=== PATIENT | female | born 1985 | race Caucasian/White ===

== ENCOUNTER → 2020-03-17 10:56 | Outpatient (BNVA) | payer MEDICAID, SELFPAY | PROVIDERS: Family Provider Nurse Practitioner; PCP Nurse Practitioner Family; Visit Provider Nurse Practitioner Family | DX: J44.1 Chronic obstructive pulmonary disease with (acute) exacerbation (principal); J45.901 Unspecified asthma with (acute) exacerbation | CPT/HCPCS: 71046 ==

== ENCOUNTER 2020-03-21 13:44 | Inpatient (IN) | payer MEDICAID, SELFPAY ==
[2020-03-21] VITALS (57 sets, daily range): BP systolic 88–177; BP diastolic 56–112; PULSE 77–140; RESP 14–29; TEMP 36.6–36.7; O2SAT 93–100; BMI 32.5
--- NOTE | 2020-03-21 14:05 | XR_ITS ---
WS: [id number] PORTABLE CHEST HISTORY: SOB COMPARISON: 03/17/2009 Lungs are clear and well expanded. No pleural effusion or pneumothorax. Cardiac size: Normal. Mediastinum/Aorta: Normal mediastinum. No osseous abnormality seen. XR/XR chest 1V portable [id number] IMPRESSION: Unremarkable portable chest.
[2020-03-21 14:32] LABS: Bilirubin Urine Neg (NEGATIVE); Blood Urine Neg (Negative); Glucose Urine UA Norm (Normal); Ketones Urine Negative (Negative); Leukocyte Esterase Urine Negative (Negative); Nitrate Urine Negative (Negative); Protein Urine Neg (Negative); Specific Gravity, Urine 1.015 (1.005-1.030); Urine Appearance Clear (CLEAR); Urine Color Yellow (Yellow); Urobilinogen Urine Norm (Negative); pH Urine 6 (5-7)
[2020-03-21 14:33] LABS: Add Urine Culture? No; Bacteria Urine TRACE; Mucus Urine 1+; RBC Urine 0-4 /hpf (0-2); WBC Urine 0-4 /hpf (0-5)
[2020-03-21 14:38] LABS: Basophils % 0.2 %; Eosinophils # 0.1 10^3/uL (0.0-0.8); Eosinophils % 0.4 %; Hematocrit 43.5 % (37.0-47.0); Hemoglobin 14.3 g/dL (11.5-15.3); Lymphocytes # 3.4 10^3/uL (0.8-4.8); Lymphocytes % 19.4 %; Mean Corpuscular HGB Conc 32.9 g/dL (30.0-36.0); Mean Corpuscular Hemoglobin 28.7 pg (28.0-34.0); Mean Corpuscular Volume 87.3 fL (81-99); Mean Platelet Volume 9.7 fL (7.4-10.4); Neutrophils # 12.81 10^3/uL (1.8-7.7); Neutrophils % 73.7 %; Nucleated Red Blood Cells % 0 %; Platelet Count 364 10^3/cmm (130-400); Red Blood Count 4.98 10^6/uL (4.1-5.3); White Blood Count 17.4 10^3/uL (4.0-10.0)
[2020-03-21] MEDS: sodium chloride 0.9% 1,000 ML 999 ML IV (14:49)
[2020-03-21] MEDS: dexamethasone 4 mg/mL INJ 8 MG IVP (14:49)
--- NOTE | 2020-03-21 14:50 | XR_ITS ---
WS: [id number] SOFT TISSUE NECK 2 VIEW(S) TECHNIQUE: AP and lateral views of the neck in soft tissue technique are performed. HISTORY: stridor COMPARISON: None available. There is significant dilatation of the hypopharynx. The epiglottis appears normal in size but there i s increased soft tissue in the subglottic region. There is mild narrowing of the subglottic region al so. No foreign body. Notified Grant Hedrick DO at 03/21/2020 3:42 PM. XR/XR soft tissue neck [id number] IMPRESSION: Significant dilatation of the hypopharynx with increased soft tissue in the sub glottic airway. Likely from a viral etiology or edema.
[2020-03-21 14:55] LABS: D Dimer 0.32 ug/mIFEU (0-0.59)
[2020-03-21 14:56] LABS: Alanine Aminotransferase 19 U/L (0-33); Albumin Level 4.3 g/dL (3.5-5.2); Alkaline Phosphatase 93 IU/L (35-105); Anion Gap 11.3 (5-19); Aspartate Amino Transferase 19 U/L (0-32); Blood Urea Nitrogen 6 mg/dL (6-20); C Reactive Protein 8.4 mg/L (0.0-4.9); Calcium 8.7 mg/dL (8.5-10.5); Carbon Dioxide 27 mmol/L (22-29); Chloride 96 mmol/L (98-107); Creatinine Clr Calc Pharmacy 210.5249; Ferritin 53 ng/mL (15-150); Globulin 3.2 g/dL (1.3-4.6); Glomerular Filtration Rate 182.7 mL/min (90-130); Glucose 149 mg/dL (65-115); Lactate Dehydrogenase 170 U/L (135-214); Osmolality Calculated 271 mOsm/kg (285-295); Potassium 3.3 mmol/L (3.5-5.1); Sodium 131 mmol/L (136-145); Total Bilirubin 0.2 mg/dL (0.15-1.2); Total Protein 7.5 g/dL (6.6-8.7)
[2020-03-21 14:57] LABS: Lactic Sepsis W/Reflex 1.4 mmol/L (0.5-2.2)
--- NOTE | 2020-03-21 15:03 | W.ED.SOB ---
Documented by User: rGant Hedrick DO 03/24/20 17:59 HPI - SOB/Dyspnea General: Chief Complaint: Shortness of Breath/Dyspnea Stated Complaint: RESP DISTRESS Time Seen by Provider: 03/21/20 13:56 History of Present Illness: HPI Narrative: 35-year-old female comes in complaining of difficulty breathing she has stridorous breathing coming from the upper respiratory tract. She states she was seen at [facility] and diagnosed bronchitis she was started on the antibiotic nebulizers and steroids but she has not really noticed any improvement she denies any fever no nausea vomiting or diarrhea no anasomia no chest pain she denies any dysuria urgency or frequency denies any hematemesis coffee-ground. He has been coughing which is been a nonproductive cough. Emesis. MD elicited complaint: shortness of breath and cough Pertinent past history: asthma Onset (ago): day(s) Context: recent illness Timing: constant and progressively worsening Severity: moderate Exacerbating factors: exertion and coughing Relieving factors: rest and bronchodilators Known history of: asthma Associated symptoms: Reports cough; Deny abdominal pain, chest congestion, chest pain, diaphoresis, dizziness, extremity pain, fever(s), hemoptysis, lightheadedness, myalgias, nausea, orthopnea, palpitations, syncope or vomiting Treatment prior to arrival: bronchodilator Review of Systems Const: Denies: fever(s) or diaphoresis ENMT: Denies: throat pain, ear or mastoid pain, nasal discharge or nasal congestion Card: Denies: chest pain, palpitations, lightheadedness, syncope or orthopnea Resp: Denies: hemoptysis or chest congestion GI: Denies: abdominal pain, nausea or vomiting : Denies: flank pain, difficulty voiding, dysuria, urinary frequency or urinary urgency Musc: Denies: extremity pain Skin/Breast: Denies: rash or pruritus Neuro: Denies: dizziness PFSH ED PFSH: Medical History Asthma with COPD with exacerbation Depression with anxiety H/O juvenile arthritis H/O migraine Lower respiratory infection Social History Smoking and tobacco status: current every day smoker cigarettes Packs smoked per day: 0.5 Years cigarettes smoked: 20 Female Reproductive History: Date of last menstrual period: 12/20/19 Physical Exam Const: COMMON NORMALS: no acute distress GENERAL APPEARANCE: cooperative and comfortable ORIENTATION/CONSCIOUSNESS: Yes awake, Yes oriented to person, Yes oriented to place and Yes oriented to time HENMT: COMMON NORMALS: normocephalic and atraumatic HEAD & SCALP: normocephalic and atraumatic Eye: COMMON NORMALS: Equal, round and reactive pupils present, EOMs intact bilaterally, conjunctivae normal and no scleral icterus CONJUNCTIVA: Yes conjunctivae normal PUPIL: Yes Equal, round and reactive pupils present Neck/C-Spine: COMMON NORMALS: full ROM, no lymphadenopathy, supple and no JVD Lymph: LYMPHATIC: no lymphadenopathy noted and no lymphedema noted Resp: COMMON NORMALS: normal respiratory effort, No retractions, No use of accessory muscles and clear to auscultation bilaterally AUSCULTATION: clear to auscultation bilaterally Cardio: COMMON NORMALS: no JVD, regular rate, regular rhythm and No murmurs present (Cardio) RATE: regular rate RHYTHM: regular rhythm GI: COMMON NORMALS: Soft to palpation and No hepatosplenomegaly present AUSCULTATION: Yes normoactive bowel sounds PALPATION: Yes Soft to palpation, No Tenderness to palpation present (GI), No Guarding due to palpation present (GI) and Yes No hepatosplenomegaly present Extremity: COMMON NORMALS: normal to inspection, capillary refill normal, no clubbing, cyanosis or edema, no calf tenderness and no pedal edema Neuro: SENSORIUM/ORIENTATION: Yes oriented to person, Yes oriented to place and Yes oriented to time Skin: COMMON NORMALS: no rashes or lesions noted GENERAL SKIN EXAM: no rashes or lesions noted Course Vital Signs: Vital signs: Vital Signs Temperature 98.5 F 03/24/20 14:00 Pulse Rate 63 03/24/20 16:00 Respiratory Rate 19 H 03/24/20 16:00 Blood Pressure 121/73 03/24/20 16:00 Pulse Oximetry 94 03/24/20 16:00 MDM - SOB/Dyspnea MDM Narrative: Medical decision making narrative: Care turned over to Dr. Carson at change of shift. I talked to Dr. Doran as well as Dr. Delgado. Dr. Doran is in the department working with anesthesia to make ready for an awake intubation. Dr. Delgado is in route and will also evaluate the mass found on the larynx on the CT. Patient has been transferred to room 11 Dr. Doran is in the room with her at this time. Dr. Carson is made aware of the current plan and that Dr. Doran is making ready to intubate her. Lab Data: Labs: Lab Results 03/21/20 03/21/20 03/21/20 Range/Units 14:00 14:20 14:20 WBC 17.4 H (4.0-10.0) 10^3/ uL RBC 4.98 (4.1-5.3) 10^6/u L Hgb 14.3 (11.5-15.3) g/dL Hct 43.5 (37.0-47.0) % MCV 87.3 (81-99) fL MCH 28.7 (28.0-34.0) pg MCHC 32.9 (30.0-36.0) g/dL RDW 12.0 L (12.1-15.1) % Plt Count 364 (130-400) 10^3/c mm MPV 9.7 (7.4-10.4) fL Neut % (Auto) 73.7 % Lymph % (Auto) 19.4 % Bullitt % (Auto) 6.0 % Eos % (Auto) 0.4 % Baso % (Auto) 0.2 % Neut # (Auto) 12.81 H (1.8-7.7) 10^3/u L Lymph # (Auto) 3.4 (0.8-4.8) 10^3/u L Bullitt # (Auto) 1.0 H (0.2-0.9) 10^3/u L Eos # (Auto) 0.1 (0.0-0.8) 10^3/u L Baso # (Auto) 0.0 (0.0-0.1) 10^3/u L Nucleated RBC % (a uto) 0 % Nucleated RBCs # 0.0 /100WBC D-Dimer (0-0.59) ug/mIFE U Sodium 131 L (136-145) mmol/L Potassium 3.3 L (3.5-5.1) mmol/L Chloride 96 L (98-107) mmol/L Carbon Dioxide 27 (22-29) mmol/L Anion Gap 11.3 (5-19) BUN 6 (6-20) mg/dL Creatinine 0.4 L (0.5-0.9) mg/dL GFR Calculation 182.7 H (90-130) mL/min Glucose 149 H (65-115) mg/dL Estimat Average Gl ucose Hemoglobin A1c (4.0-6.0) % Calculated Osmolal ity 271 L (285-295) mOsm/k g Lactic Acid (0.5-2.2) mmol/L Calcium 8.7 (8.5-10.5) mg/dL Magnesium (1.7-2.3) mg/dL Ferritin 53 (15-150) ng/mL Total Bilirubin 0.2 (0.15-1.2) mg/dL AST 19 (0-32) U/L ALT 19 (0-33) U/L Alkaline Phosphata se 93 (35-105) IU/L Lactate Dehydrogen ase 170 (135-214) U/L C-Reactive Protein 8.4 H (0.0-4.9) mg/L Total Protein 7.5 (6.6-8.7) g/dL Albumin 4.3 (3.5-5.2) g/dL Globulin 3.2 (1.3-4.6) g/dL HCG, Qual (Negative) Urine Color Yellow (Yellow) Urine Appearance Clear (CLEAR) Urine pH 6 (5-7) Ur Specific Gravit y 1.015 (1.005-1.030) Urine Protein Neg (Negative) Urine Glucose (UA) Norm (Normal) Urine Ketones Negative (Negative) Urine Blood Neg (Negative) Urine Nitrate Negative (Negative) Urine Bilirubin Neg (NEGATIVE) Urine Urobilinogen Norm (Negative) mg/dL Ur Leukocyte Danielle ase Negative (Negative) Urine RBC 0-4 H (0-2) /hpf Urine WBC 0-4 H (0-5) /hpf Ur Squamous Epith Cells 10-15 H (0-5) Amorphous Sediment Not Reportable Urine Bacteria Trace (NONE) Urine Mucus 1+ SARS-CoV-2 RNA (RT -PCR) (NOT DETECTED) SARS-CoV-2 Ag (Rap id) (Negative) 03/21/20 03/21/20 03/21/20 Range/Units 14:20 14:20 14:20 WBC (4.0-10.0) 10^3/ uL RBC (4.1-5.3) 10^6/u L Hgb (11.5-15.3) g/dL Hct (37.0-47.0) % MCV (81-99) fL MCH (28.0-34.0) pg MCHC (30.0-36.0) g/dL RDW (12.1-15.1) % Plt Count (130-400) 10^3/c mm MPV (7.4-10.4) fL Neut % (Auto) % Lymph % (Auto) % Bullitt % (Auto) % Eos % (Auto) % Baso % (Auto) % Neut # (Auto) (1.8-7.7) 10^3/u L Lymph # (Auto) (0.8-4.8) 10^3/u L Bullitt # (Auto) (0.2-0.9) 10^3/u L Eos # (Auto) (0.0-0.8) 10^3/u L Baso # (Auto) (0.0-0.1) 10^3/u L Nucleated RBC % (a uto) % Nucleated RBCs # /100WBC D-Dimer 0.32 (0-0.59) ug/mIFE U Sodium (136-145) mmol/L Potassium (3.5-5.1) mmol/L Chloride (98-107) mmol/L Carbon Dioxide (22-29) mmol/L Anion Gap (5-19) BUN (6-20) mg/dL Creatinine (0.5-0.9) mg/dL GFR Calculation (90-130) mL/min Glucose (65-115) mg/dL Estimat Average Gl ucose Hemoglobin A1c (4.0-6.0) % Calculated Osmolal ity (285-295) mOsm/k g Lactic Acid 1.4 (0.5-2.2) mmol/L Calcium (8.5-10.5) mg/dL Magnesium (1.7-2.3) mg/dL Ferritin (15-150) ng/mL Total Bilirubin (0.15-1.2) mg/dL AST (0-32) U/L ALT (0-33) U/L Alkaline Phosphata se (35-105) IU/L Lactate Dehydrogen ase (135-214) U/L C-Reactive Protein (0.0-4.9) mg/L Total Protein (6.6-8.7) g/dL Albumin (3.5-5.2) g/dL Globulin (1.3-4.6) g/dL HCG, Qual Negative (Negative) Urine Color (Yellow) Urine Appearance (CLEAR) Urine pH (5-7) Ur Specific Gravit y (1.005-1.030) Urine Protein (Negative) Urine Glucose (UA) (Normal) Urine Ketones (Negative) Urine Blood (Negative) Urine Nitrate (Negative) Urine Bilirubin (NEGATIVE) Urine Urobilinogen (Negative) mg/dL Ur Leukocyte Danielle ase (Negative) Urine RBC (0-2) /hpf Urine WBC (0-5) /hpf Ur Squamous Epith Cells (0-5) Amorphous Sediment Urine Bacteria (NONE) Urine Mucus SARS-CoV-2 RNA (RT -PCR) (NOT DETECTED) SARS-CoV-2 Ag (Rap id) (Negative) 03/21/20 03/21/20 03/21/20 Range/Units 14:20 14:20 14:45 WBC (4.0-10.0) 10^3/ uL RBC (4.1-5.3) 10^6/u L Hgb (11.5-15.3) g/dL Hct (37.0-47.0) % MCV (81-99) fL MCH (28.0-34.0) pg MCHC (30.0-36.0) g/dL RDW (12.1-15.1) % Plt Count (130-400) 10^3/c mm MPV (7.4-10.4) fL Neut % (Auto) % Lymph % (Auto) % Bullitt % (Auto) % Eos % (Auto) % Baso % (Auto) % Neut # (Auto) (1.8-7.7) 10^3/u L Lymph # (Auto) (0.8-4.8) 10^3/u L Bullitt # (Auto) (0.2-0.9) 10^3/u L Eos # (Auto) (0.0-0.8) 10^3/u L Baso # (Auto) (0.0-0.1) 10^3/u L Nucleated RBC % (a uto) % Nucleated RBCs # /100WBC D-Dimer (0-0.59) ug/mIFE U Sodium (136-145) mmol/L Potassium (3.5-5.1) mmol/L Chloride (98-107) mmol/L Carbon Dioxide (22-29) mmol/L Anion Gap (5-19) BUN (6-20) mg/dL Creatinine (0.5-0.9) mg/dL GFR Calculation (90-130) mL/min Glucose (65-115) mg/dL Estimat Average Gl ucose 123 Hemoglobin A1c 5.9 (4.0-6.0) % Calculated Osmolal ity (285-295) mOsm/k g Lactic Acid (0.5-2.2) mmol/L Calcium (8.5-10.5) mg/dL Magnesium 1.9 (1.7-2.3) mg/dL Ferritin (15-150) ng/mL Total Bilirubin (0.15-1.2) mg/dL AST (0-32) U/L ALT (0-33) U/L Alkaline Phosphata se (35-105) IU/L Lactate Dehydrogen ase (135-214) U/L C-Reactive Protein (0.0-4.9) mg/L Total Protein (6.6-8.7) g/dL Albumin (3.5-5.2) g/dL Globulin (1.3-4.6) g/dL HCG, Qual (Negative) Urine Color (Yellow) Urine Appearance (CLEAR) Urine pH (5-7) Ur Specific Gravit y (1.005-1.030) Urine Protein (Negative) Urine Glucose (UA) (Normal) Urine Ketones (Negative) Urine Blood (Negative) Urine Nitrate (Negative) Urine Bilirubin (NEGATIVE) Urine Urobilinogen (Negative) mg/dL Ur Leukocyte Danielle ase (Negative) Urine RBC (0-2) /hpf Urine WBC (0-5) /hpf Ur Squamous Epith Cells (0-5) Amorphous Sediment Urine Bacteria (NONE) Urine Mucus SARS-CoV-2 RNA (RT -PCR) Not detected (NOT DETECTED) SARS-CoV-2 Ag (Rap id) (Negative) 03/21/20 Range/Units 17:50 WBC (4.0-10.0) 10^3/ uL RBC (4.1-5.3) 10^6/u L Hgb (11.5-15.3) g/dL Hct (37.0-47.0) % MCV (81-99) fL MCH (28.0-34.0) pg MCHC (30.0-36.0) g/dL RDW (12.1-15.1) % Plt Count (130-400) 10^3/c mm MPV (7.4-10.4) fL Neut % (Auto) % Lymph % (Auto) % Bullitt % (Auto) % Eos % (Auto) % Baso % (Auto) % Neut # (Auto) (1.8-7.7) 10^3/u L Lymph # (Auto) (0.8-4.8) 10^3/u L Bullitt # (Auto) (0.2-0.9) 10^3/u L Eos # (Auto) (0.0-0.8) 10^3/u L Baso # (Auto) (0.0-0.1) 10^3/u L Nucleated RBC % (a uto) % Nucleated RBCs # /100WBC D-Dimer (0-0.59) ug/mIFE U Sodium (136-145) mmol/L Potassium (3.5-5.1) mmol/L Chloride (98-107) mmol/L Carbon Dioxide (22-29) mmol/L Anion Gap (5-19) BUN (6-20) mg/dL Creatinine (0.5-0.9) mg/dL GFR Calculation (90-130) mL/min Glucose (65-115) mg/dL Estimat Average Gl ucose Hemoglobin A1c (4.0-6.0) % Calculated Osmolal ity (285-295) mOsm/k g Lactic Acid (0.5-2.2) mmol/L Calcium (8.5-10.5) mg/dL Magnesium (1.7-2.3) mg/dL Ferritin (15-150) ng/mL Total Bilirubin (0.15-1.2) mg/dL AST (0-32) U/L ALT (0-33) U/L Alkaline Phosphata se (35-105) IU/L Lactate Dehydrogen ase (135-214) U/L C-Reactive Protein (0.0-4.9) mg/L Total Protein (6.6-8.7) g/dL Albumin (3.5-5.2) g/dL Globulin (1.3-4.6) g/dL HCG, Qual (Negative) Urine Color (Yellow) Urine Appearance (CLEAR) Urine pH (5-7) Ur Specific Gravit y (1.005-1.030) Urine Protein (Negative) Urine Glucose (UA) (Normal) Urine Ketones (Negative) Urine Blood (Negative) Urine Nitrate (Negative) Urine Bilirubin (NEGATIVE) Urine Urobilinogen (Negative) mg/dL Ur Leukocyte Danielle ase (Negative) Urine RBC (0-2) /hpf Urine WBC (0-5) /hpf Ur Squamous Epith Cells (0-5) Amorphous Sediment Urine Bacteria (NONE) Urine Mucus SARS-CoV-2 RNA (RT -PCR) (NOT DETECTED) SARS-CoV-2 Ag (Rap id) Negative (Negative) Discharge Plan Discharge Patient Disposition: Admitted As Inpatient Admit Provider: Bunny Jiang Clinical Impression: Airway obstruction, Vocal cord mass Condition: Stable Interventions: ED Discharge Assessment Last Done: 03/21/20 19:26 ED Charges Last Done: 03/21/20 19:26 Discharge Date/Time: 03/21/20 19:31 Sign Out Sign Out Data: Patient Sign Out occurred on 03/21/20 at 18:20. Patient's care was discussed, and care was transferred from to Kourtney Stafford. Coding Level of Care Code ED Junior Mechanical Engineer for Chg Fwd Exam Comprehensive Documented by User: Kourtney Stafford 03/21/20 19:14 HPI - SOB/Dyspnea General: Chief Complaint: Shortness of Breath/Dyspnea Stated Complaint: RESP DISTRESS Time Seen by Provider: 03/21/20 13:56 PFSH ED PFSH: Medical History Asthma with COPD with exacerbation Depression with anxiety H/O juvenile arthritis H/O migraine Lower respiratory infection Social History Smoking and tobacco status: current every day smoker cigarettes Packs smoked per day: 0.5 Years cigarettes smoked: 20 Course Vital Signs: Vital signs: Vital Signs Temperature 98.5 F 03/24/20 14:00 Pulse Rate 63 03/24/20 16:00 Respiratory Rate 19 H 03/24/20 16:00 Blood Pressure 121/73 03/24/20 16:00 Pulse Oximetry 94 03/24/20 16:00 MDM - SOB/Dyspnea MDM Narrative: Medical decision making narrative: 1800 - Patient care was turned over to me at change of shift from Dr. Hedrick. Please see his notes for his history, physical exam and medical decision-making notes. The patient's airway was being managed by Dr. Doran and Dr. Waddell. They made the decision to take the patient to the operating room for tracheostomy. At no time that I see or evaluate the patient. I did notify Dr. Jiang of a admission. Until he is seen the patient he request Dr. Delgado to admit him to consult and they will make changes later after Dr. Delgado's care is complete. Lab Data: Labs: Lab Results 03/21/20 03/21/20 03/21/20 Range/Units 14:00 14:20 14:20 WBC 17.4 H (4.0-10.0) 10^3/ uL RBC 4.98 (4.1-5.3) 10^6/u L Hgb 14.3 (11.5-15.3) g/dL Hct 43.5 (37.0-47.0) % MCV 87.3 (81-99) fL MCH 28.7 (28.0-34.0) pg MCHC 32.9 (30.0-36.0) g/dL RDW 12.0 L (12.1-15.1) % Plt Count 364 (130-400) 10^3/c mm MPV 9.7 (7.4-10.4) fL Neut % (Auto) 73.7 % Lymph % (Auto) 19.4 % Bullitt % (Auto) 6.0 % Eos % (Auto) 0.4 % Baso % (Auto) 0.2 % Neut # (Auto) 12.81 H (1.8-7.7) 10^3/u L Lymph # (Auto) 3.4 (0.8-4.8) 10^3/u L Bullitt # (Auto) 1.0 H (0.2-0.9) 10^3/u L Eos # (Auto) 0.1 (0.0-0.8) 10^3/u L Baso # (Auto) 0.0 (0.0-0.1) 10^3/u L Nucleated RBC % (a uto) 0 % Nucleated RBCs # 0.0 /100WBC D-Dimer (0-0.59) ug/mIFE U Sodium 131 L (136-145) mmol/L Potassium 3.3 L (3.5-5.1) mmol/L Chloride 96 L (98-107) mmol/L Carbon Dioxide 27 (22-29) mmol/L Anion Gap 11.3 (5-19) BUN 6 (6-20) mg/dL Creatinine 0.4 L (0.5-0.9) mg/dL GFR Calculation 182.7 H (90-130) mL/min Glucose 149 H (65-115) mg/dL Estimat Average Gl ucose Hemoglobin A1c (4.0-6.0) % Calculated Osmolal ity 271 L (285-295) mOsm/k g Lactic Acid (0.5-2.2) mmol/L Calcium 8.7 (8.5-10.5) mg/dL Magnesium (1.7-2.3) mg/dL Ferritin 53 (15-150) ng/mL Total Bilirubin 0.2 (0.15-1.2) mg/dL AST 19 (0-32) U/L ALT 19 (0-33) U/L Alkaline Phosphata se 93 (35-105) IU/L Lactate Dehydrogen ase 170 (135-214) U/L C-Reactive Protein 8.4 H (0.0-4.9) mg/L Total Protein 7.5 (6.6-8.7) g/dL Albumin 4.3 (3.5-5.2) g/dL Globulin 3.2 (1.3-4.6) g/dL HCG, Qual (Negative) Urine Color Yellow (Yellow) Urine Appearance Clear (CLEAR) Urine pH 6 (5-7) Ur Specific Gravit y 1.015 (1.005-1.030) Urine Protein Neg (Negative) Urine Glucose (UA) Norm (Normal) Urine Ketones Negative (Negative) Urine Blood Neg (Negative) Urine Nitrate Negative (Negative) Urine Bilirubin Neg (NEGATIVE) Urine Urobilinogen Norm (Negative) mg/dL Ur Leukocyte Danielle ase Negative (Negative) Urine RBC 0-4 H (0-2) /hpf Urine WBC 0-4 H (0-5) /hpf Ur Squamous Epith Cells 10-15 H (0-5) Amorphous Sediment Not Reportable Urine Bacteria Trace (NONE) Urine Mucus 1+ SARS-CoV-2 RNA (RT -PCR) (NOT DETECTED) SARS-CoV-2 Ag (Rap id) (Negative) 03/21/20 03/21/20 03/21/20 Range/Units 14:20 14:20 14:20 WBC (4.0-10.0) 10^3/ uL RBC (4.1-5.3) 10^6/u L Hgb (11.5-15.3) g/dL Hct (37.0-47.0) % MCV (81-99) fL MCH (28.0-34.0) pg MCHC (30.0-36.0) g/dL RDW (12.1-15.1) % Plt Count (130-400) 10^3/c mm MPV (7.4-10.4) fL Neut % (Auto) % Lymph % (Auto) % Bullitt % (Auto) % Eos % (Auto) % Baso % (Auto) % Neut # (Auto) (1.8-7.7) 10^3/u L Lymph # (Auto) (0.8-4.8) 10^3/u L Bullitt # (Auto) (0.2-0.9) 10^3/u L Eos # (Auto) (0.0-0.8) 10^3/u L Baso # (Auto) (0.0-0.1) 10^3/u L Nucleated RBC % (a uto) % Nucleated RBCs # /100WBC D-Dimer 0.32 (0-0.59) ug/mIFE U Sodium (136-145) mmol/L Potassium (3.5-5.1) mmol/L Chloride (98-107) mmol/L Carbon Dioxide (22-29) mmol/L Anion Gap (5-19) BUN (6-20) mg/dL Creatinine (0.5-0.9) mg/dL GFR Calculation (90-130) mL/min Glucose (65-115) mg/dL Estimat Average Gl ucose Hemoglobin A1c (4.0-6.0) % Calculated Osmolal ity (285-295) mOsm/k g Lactic Acid 1.4 (0.5-2.2) mmol/L Calcium (8.5-10.5) mg/dL Magnesium (1.7-2.3) mg/dL Ferritin (15-150) ng/mL Total Bilirubin (0.15-1.2) mg/dL AST (0-32) U/L ALT (0-33) U/L Alkaline Phosphata se (35-105) IU/L Lactate Dehydrogen ase (135-214) U/L C-Reactive Protein (0.0-4.9) mg/L Total Protein (6.6-8.7) g/dL Albumin (3.5-5.2) g/dL Globulin (1.3-4.6) g/dL HCG, Qual Negative (Negative) Urine Color (Yellow) Urine Appearance (CLEAR) Urine pH (5-7) Ur Specific Gravit y (1.005-1.030) Urine Protein (Negative) Urine Glucose (UA) (Normal) Urine Ketones (Negative) Urine Blood (Negative) Urine Nitrate (Negative) Urine Bilirubin (NEGATIVE) Urine Urobilinogen (Negative) mg/dL Ur Leukocyte Danielle ase (Negative) Urine RBC (0-2) /hpf Urine WBC (0-5) /hpf Ur Squamous Epith Cells (0-5) Amorphous Sediment Urine Bacteria (NONE) Urine Mucus SARS-CoV-2 RNA (RT -PCR) (NOT DETECTED) SARS-CoV-2 Ag (Rap id) (Negative) 03/21/20 03/21/20 03/21/20 Range/Units 14:20 14:20 14:45 WBC (4.0-10.0) 10^3/ uL RBC (4.1-5.3) 10^6/u L Hgb (11.5-15.3) g/dL Hct (37.0-47.0) % MCV (81-99) fL MCH (28.0-34.0) pg MCHC (30.0-36.0) g/dL RDW (12.1-15.1) % Plt Count (130-400) 10^3/c mm MPV (7.4-10.4) fL Neut % (Auto) % Lymph % (Auto) % Bullitt % (Auto) % Eos % (Auto) % Baso % (Auto) % Neut # (Auto) (1.8-7.7) 10^3/u L Lymph # (Auto) (0.8-4.8) 10^3/u L Bullitt # (Auto) (0.2-0.9) 10^3/u L Eos # (Auto) (0.0-0.8) 10^3/u L Baso # (Auto) (0.0-0.1) 10^3/u L Nucleated RBC % (a uto) % Nucleated RBCs # /100WBC D-Dimer (0-0.59) ug/mIFE U Sodium (136-145) mmol/L Potassium (3.5-5.1) mmol/L Chloride (98-107) mmol/L Carbon Dioxide (22-29) mmol/L Anion Gap (5-19) BUN (6-20) mg/dL Creatinine (0.5-0.9) mg/dL GFR Calculation (90-130) mL/min Glucose (65-115) mg/dL Estimat Average Gl ucose 123 Hemoglobin A1c 5.9 (4.0-6.0) % Calculated Osmolal ity (285-295) mOsm/k g Lactic Acid (0.5-2.2) mmol/L Calcium (8.5-10.5) mg/dL Magnesium 1.9 (1.7-2.3) mg/dL Ferritin (15-150) ng/mL Total Bilirubin (0.15-1.2) mg/dL AST (0-32) U/L ALT (0-33) U/L Alkaline Phosphata se (35-105) IU/L Lactate Dehydrogen ase (135-214) U/L C-Reactive Protein (0.0-4.9) mg/L Total Protein (6.6-8.7) g/dL Albumin (3.5-5.2) g/dL Globulin (1.3-4.6) g/dL HCG, Qual (Negative) Urine Color (Yellow) Urine Appearance (CLEAR) Urine pH (5-7) Ur Specific Gravit y (1.005-1.030) Urine Protein (Negative) Urine Glucose (UA) (Normal) Urine Ketones (Negative) Urine Blood (Negative) Urine Nitrate (Negative) Urine Bilirubin (NEGATIVE) Urine Urobilinogen (Negative) mg/dL Ur Leukocyte Danielle ase (Negative) Urine RBC (0-2) /hpf Urine WBC (0-5) /hpf Ur Squamous Epith Cells (0-5) Amorphous Sediment Urine Bacteria (NONE) Urine Mucus SARS-CoV-2 RNA (RT -PCR) Not detected (NOT DETECTED) SARS-CoV-2 Ag (Rap id) (Negative) 03/21/20 Range/Units 17:50 WBC (4.0-10.0) 10^3/ uL RBC (4.1-5.3) 10^6/u L Hgb (11.5-15.3) g/dL Hct (37.0-47.0) % MCV (81-99) fL MCH (28.0-34.0) pg MCHC (30.0-36.0) g/dL RDW (12.1-15.1) % Plt Count (130-400) 10^3/c mm MPV (7.4-10.4) fL Neut % (Auto) % Lymph % (Auto) % Bullitt % (Auto) % Eos % (Auto) % Baso % (Auto) % Neut # (Auto) (1.8-7.7) 10^3/u L Lymph # (Auto) (0.8-4.8) 10^3/u L Bullitt # (Auto) (0.2-0.9) 10^3/u L Eos # (Auto) (0.0-0.8) 10^3/u L Baso # (Auto) (0.0-0.1) 10^3/u L Nucleated RBC % (a uto) % Nucleated RBCs # /100WBC D-Dimer (0-0.59) ug/mIFE U Sodium (136-145) mmol/L Potassium (3.5-5.1) mmol/L Chloride (98-107) mmol/L Carbon Dioxide (22-29) mmol/L Anion Gap (5-19) BUN (6-20) mg/dL Creatinine (0.5-0.9) mg/dL GFR Calculation (90-130) mL/min Glucose (65-115) mg/dL Estimat Average Gl ucose Hemoglobin A1c (4.0-6.0) % Calculated Osmolal ity (285-295) mOsm/k g Lactic Acid (0.5-2.2) mmol/L Calcium (8.5-10.5) mg/dL Magnesium (1.7-2.3) mg/dL Ferritin (15-150) ng/mL Total Bilirubin (0.15-1.2) mg/dL AST (0-32) U/L ALT (0-33) U/L Alkaline Phosphata se (35-105) IU/L Lactate Dehydrogen ase (135-214) U/L C-Reactive Protein (0.0-4.9) mg/L Total Protein (6.6-8.7) g/dL Albumin (3.5-5.2) g/dL Globulin (1.3-4.6) g/dL HCG, Qual (Negative) Urine Color (Yellow) Urine Appearance (CLEAR) Urine pH (5-7) Ur Specific Gravit y (1.005-1.030) Urine Protein (Negative) Urine Glucose (UA) (Normal) Urine Ketones (Negative) Urine Blood (Negative) Urine Nitrate (Negative) Urine Bilirubin (NEGATIVE) Urine Urobilinogen (Negative) mg/dL Ur Leukocyte Danielle ase (Negative) Urine RBC (0-2) /hpf Urine WBC (0-5) /hpf Ur Squamous Epith Cells (0-5) Amorphous Sediment Urine Bacteria (NONE) Urine Mucus SARS-CoV-2 RNA (RT -PCR) (NOT DETECTED) SARS-CoV-2 Ag (Rap id) Negative (Negative) Discharge Plan Discharge Patient Disposition: Admitted As Inpatient Admit Provider: Bunny Jiang Clinical Impression: Airway obstruction, Vocal cord mass Condition: Stable Interventions: ED Discharge Assessment Last Done: 03/21/20 19:26 ED Charges Last Done: 03/21/20 19:26 Discharge Date/Time: 03/21/20 19:31 Sign Out Sign Out Data: Patient Sign Out occurred on 08/04/20 at 18:20. Patient's care was discussed, and care was transferred from to Kourtney Stafford. Coding Level of Care Code ED Junior Mechanical Engineer for Chg Fwd Exam Comprehensive
--- NOTE | 2020-03-21 15:21 | PC.NURSE ---
Patient placed on COVID isolation and swabbed for COVID 19.
--- NOTE | 2020-03-21 15:49 | CTR_ITS ---
PROCEDURE INFORMATION: Exam: CT Neck With Contrast Exam date and time: 03/21/2020 4:07 PM Age: 35 years old Clinical indication: Dyspnea / difficulty breathing and other: Difficulty talking; Additional info: Stridor TECHNIQUE: Imaging protocol: Computed tomography images of the neck with intravenous contrast. Radiation optimization: All CT scans at this facility use at least one of these dose optimization techniques: automated exposure control; mA and/or kV adjustment per patient size (includes targeted exams where dose is matched to clinical indication); or iterative reconstruction. Contrast material: OMNI 300; Contrast volume: 95 ml; Contrast route: INTRAVENOUS (IV); COMPARISON: CR XR soft tissue neck [id number] 03/21/2020 3:24 PM RADIATION DOSE METRICS: Total DLP (mGy-cm): 752.79 FINDINGS: Limitations: Study is somewhat limited by patient motion. Nasopharynx: Unremarkable. Oropharynx: Unremarkable. No significant tonsillar enlargement. Hypopharynx: Unremarkable. Larynx: There is nonspecific abnormal thickening of the vocal cords on both sides, the aryepiglottic folds and the mucosal space around the arytenoid cartilages. There may also be some erosion or destruction of the midportion of the cricoid cartilage. These findings are worrisome for nonspecific infection or inflammation versus malignancy. No fluid collection or drainable abscess is identified. Detail in this region is limited by patient motion. Further evaluation such as with laryngoscopy is recommended. Retropharyngeal space: Unremarkable. Submandibular/Parotid glands: Normal. Glands are normal in size. Thyroid: Normal. No enlarged or calcified nodules. Lymph nodes: No adenopathy is identified within the neck. Trachea: Visualized trachea is unremarkable. Lungs: Unremarkable as visualized. Bones/joints: See Larynx finding. Soft tissues: See Larynx finding. CT/CT neck w con* [id number] IMPRESSION: Abnormal nonspecific swelling of the vocal cords and adjacent mucosal space soft tissues. Differential considerations include infection/inflammation and malignancy. COMMENTS: THIS REPORT CONTAINS FINDINGS THAT MAY BE CRITICAL TO PATIENT CARE. The findings were verbally communicated via telephone conference with Grant Hedrick at 5:21 PM CDT on 03/21/2020. The findings were acknowledged and understood. Radiation Dose CTDIVOL = (mGy): DLP = 752.79 (mGy-cm)
[2020-03-21] MEDS: iohexol 300 mg/mL 100 mL Btl IV (16:17)
[2020-03-21] MEDS: piperacillin-tazobactam 3.375 GM in sodium chloride 0.9% (plus) 50 ML IV (17:56)
[2020-03-21] MEDS: dexamethasone 10 mg/mL INJ IVP (17:56)
[2020-03-21 17:59] LABS: SARS Covid-2 Antigen Negative (Negative)
[2020-03-21] MEDS: lidocaine 4% PF 5 mL INJ INHALATION (18:14)
[2020-03-21] MEDS: succinylcholine 20 mg/mL SDV 10mL 100 MG IV (18:52)
[2020-03-21] MEDS: midazolam 1 mg/mL INJ 2 mL 4 MG IVP (18:52)
--- NOTE | 2020-03-21 19:21 | PC.NURSE ---
Dr Waddell and Dr Doran at , emergency intubation was attempted and unsuccessful. Emergency trach attempted in the ED and was unsuccessful, patient taken to OR at this time.
--- NOTE | 2020-03-21 20:26 | P.CONIM_ITS ---
Providers/Reason For Consult Consulting Physican/Specialty*: Eddie Waddell MD Otolaryngology, Head-Neck Surgery Reason for Consult*: Acute Airway Obstruction Attending Physician: Ta Doran MD Primary Care Provider: Chanel Omalley History of Present Illness History of Present Illness Vilma Conner is a 35 year old female who presented to the [facility] [place] with acute airway obstruction. I was consulted to advise and assist in securing the patient's airway. The patient was unable to speak, and had no family present. Review of Systems General: Reports: ROS unobtainable due to medical condition Meds/Allergies Home Medications and Allergies Home Medications Medication Instructions Recorded Confirmed Last Taken Type albuterol sulfate 90 mcg/actuation 2 puff INHALATION Q6H PRN 03/09/20 03/21/20 03/20/20 History aerosol inhaler norethindrone (contraceptive) 0.35 0.35 mg PO DAILY 03/09/20 03/21/20 03/21/20 History mg tablet sertraline 50 mg tablet 50 mg PO DAILY 03/09/20 03/21/20 03/21/20 History levofloxacin 500 mg tablet 500 mg PO DAILY #5 tab 03/17/20 03/21/20 03/21/20 Rx nicotine 21 mg/24 hr daily 1 patch TRANSDERMA Q24H 28 Days 03/17/20 03/21/20 03/21/20 Rx transdermal patch #28 each albuterol sulfate 0.63 mg/3 mL 0.63 mg INHALATION Q6H PRN 30 Days 03/20/20 03/21/20 03/21/20 Rx solution for nebulization #90 ml Allergies Allergy/AdvReac Type Severity Reaction Status Date / Time No Known Allergies Allergy Verified 03/17/20 10:06 PFSH Acute PFSH: Medical History Asthma with COPD with exacerbation Depression with anxiety H/O juvenile arthritis H/O migraine Lower respiratory infection Social History Smoking and tobacco status: current every day smoker cigarettes Packs smoked per day: 0.5 Years cigarettes smoked: 20 Female Reproductive History: Date of last menstrual period: 12/20/19 Vitals/I&O/Wt Last Vital Signs Temp 97.9 F 03/21/20 13:48 Pulse 140 H 03/21/20 19:26 Resp 22 H 03/21/20 19:26 BP 177/111 03/21/20 19:26 Pulse Ox 95 03/21/20 19:26 03/21/20 03/21/20 03/21/20 06:59 14:59 22:59 Intake Total 1000 / 1000 Balance 1000 / 1000 Weight last 48 hrs Weight 86.183 kg Physical Exam Const: GENERAL APPEARANCE: in distress (The patient was breathing heavily and could not communicate. ) HENMT: COMMON NORMALS: normocephalic, atraumatic, external ears normal and Normal external nose present HEAD & SCALP: normal to inspection, normocephalic and atraumatic FACE & SINUS: normal facial exam NOSE: Normal external nose present EXTERNAL EAR: Yes external ears normal MOUTH: Normal oral and palatal mucosa present, lip normal and audible dysphonia TEETH & GINGIVA: Yes poor dentition THROAT: posterior oropharynx normal Eye: COMMON NORMALS: conjunctivae normal and no scleral icterus GENERAL EYE: appearance normal, both eyes and all related structures CONJUNCTIVA: Yes conjunctivae normal Neck/C-Spine: COMMON NORMALS: full ROM, no lymphadenopathy and Thyroid normal GENERAL: Yes normal visual inspection and Yes trachea midline THYROID: Thyroid normal CAROTIDS: Yes normal carotid upstroke Lymph: LYMPHATIC: no lymphadenopathy noted Chest: COMMONS NORMALS: normal inspection of the chest CHEST: Yes abnormal inspection of the chest Resp: COMMON NORMALS: clear to auscultation bilaterally EFFORT & INSPECTION: Yes respiratory distress and Yes uses accessory muscles AUSCULTATION: clear to auscultation bilaterally Cardio: COMMON NORMALS: regular rate and regular rhythm RATE: regular rate RHYTHM: regular rhythm Data Micro: Micro: Microbiology 03/21/20 14:15 Blood Culture - Pr eliminary Blood SPECIMEN [facility] 03/21/20 14:20 Blood Culture - Pr eliminary Blood SPECIMEN [facility] A&P Additional A&P Information Impression: 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 The patient was sedated. There was no family present to consult with Procedures Procedure Narrative Procedure Note: verbal informed consent was obtained from the patient; the nose was sprayed with afrin/lidocaine mix, and the flexible fiberoptic nasopharyngolaryngoscope was advanced into the nose; an inspection was carried out of the patient's nasopharynx, oralpharynx, hypopharynx, and larynx; the left true vocal cord was immobile and in the paramedian postion; the right true vocal cord had a polypoid/exophytic swelling and was in the paramedian position; there was minimal mobility of the right true vocal cord; the airway was extremely narrow; the remainder of the exam was normal. Procedure: verbal informed consent was obtained; the anterior neck was injected with lidocaine (10mL), and an attempt was made to perform a needle cricothyroidotomy that was unsuccessful; the procedure was abandoned, and it was at this point that the patient was taken to the OR emergently. Coding Level of Care Code Acute Director Telecommunications for Verito Randle
--- NOTE | 2020-03-21 20:38 | PM.OP ---
Operative Report Date of procedure: March 21, 2020 Pre-op Diagnosis: Acute airway obstruction Post-op diagnosis: same Post-op Findings: Bilateral true vocal cords in the paramedian postion There is an irregular, polypoid swelling of the right true vocal cord The larynx is o/w normal Procedure Done: Tracheotomy Microdirect Laryngoscopy with biopsy Specimens removed/disposition: Right true vocal cord lesion Pathology: Right true vocal cord lesion Surgeon: Eddie Waddell Music Video Director: Tyrese Yee Music Video Director: Karuna Sam Anesthesia: General Estimated blood loss (mL): 20 IV fluids (mL): 600 Complications: None Findings: Bilateral true vocal cords in the paramedian position Exophytic polypoid enlargement of the right true vocal cord O/W normal laryngeal exam Condition: stable Disposition: ICU Brief History: 35 yo wf who [place] [facility] [place]. The patient was unable to intubated in the ER and taken to the OR for surgical trachetomy. Procedure: The patient was taken to the OR and was placed on the OR table in the supine position. The anterior neck, which had previously injected with 10mL of 1% plain lidocaine in the ER was incised vertically over the lower trachea with a #15 blade. Using electrocautery, metzenbaum scissors, and digital palpation, the trachea was identified and entered at the 3/4th tracheal ring. A window of cartilage was removed from the anterior tracheal ring with scalpel, and a #6 cuffed trach tube was placed in the trachea. The trach tube was then secured with sutures and a neck strap; at this point, using the surgical laryngoscope, a microdirect laryngoscopy was performed, and a biopsy was taken of the right true vocal cord; At this point, the procedure was terminated, and control of the patient was returned to anesthesia where she underwent an uneventful reversal of anethesia and was taken to the ICU in stable condition; there were no operative or anesthetic complications.
[2020-03-21] MEDS: famotidine 20 mg/2 mL INJ IVP (21:03)
[2020-03-21] MEDS: sodium chloride 0.9% 1,000 ML 100 ML IV (21:03)
[2020-03-21] MEDS: vancomycin 1,000 MG in sodium chloride 0.9% 250 ML 250 MG IV (21:06)
--- NOTE | 2020-03-21 21:09 | PM.MISC ---
Miscellaneous Note Purpose of Documentation: ER Awake intubation assist with Dr. Doran Note: Called to ER for pt with stridor and needing airway secured. Dr. Doran requesting to have anesthesia to help anesthetize the airway for awake flexible bronchoscopy intubation. Pt evaluated and assessed. Glycopyrrolate 0.2mg IV given, Afrin nasal prep done as well to begin. tongue, tonsillar pillars and pharynx locally anesthetized with 2% viscous lidocaine and 4% nebulized lidocaine per RT. IV anesthesia given total 4mg Midazolam and 50mcg Fentanyl. 50mg propofol total given. Dr. Doran attempts at intubation are unsuccessful and decision made to convert to awake tracheostomy. As OR team is setting up, pt having increased difficulty breathing and Dr. Waddell attempts cricothyrotomy and unsuccesfully attains airway. Pt then assisted with Ambu-bag ventilation to OR for Tracheostomy. SEE anesthesia record for OR record.
--- NOTE | 2020-03-21 21:11 | PC.PHAR ---
Vancomycin is dosed at 1000mg IVPB every 8 hours to produce a predicted trough level of 12.14 (population based pharmacokinetic analysis). A trough level has been ordered from the lab to be obtained before the fourth dose to confirm and adjust if needed. The Zosyn is dosed at 3.375gm IVPB every 8 hours on basis of creatinine clearance of 210.5, each dose to be infused over four hours per extended infusion protocol.
[2020-03-21] MEDS: propofol 1,000 MG/100 ML INJ 10.3 MG IV (21:43)
--- NOTE | 2020-03-21 22:39 | PM.HP ---
Providers/Chief Complaint Admitting Physician: Ta Doran MD Primary Care Provider: Chanel Omalley Chief Complaint: RESP DISTRESS History of Present Illness Vilma Conner is a 35 year old female who presented to the emergency department, with difficulty breathing. From my understanding, she has had URI symptoms for several weeks, had received some Decadron Rocephin and Augmentin as an outpatient and prescription for nebs. Further history unavailable currently from the patient as she is sedated and ventilated through tracheostomy. While in the ER significant airway problems were noted and ENT was consulted for airway obstruction. Right vocal cord swelling, with decreased mobility was noted. Patient was taken to the operating room where tracheostomy was performed, and biopsy of right vocal cord secondary to polypoid enlargement. From my understanding, left vocal cord may have had partial paralysis. Review of Systems General: Reports: ROS unobtainable due to mental status (Sedated) Medications/Allergies Home Medications Medication Instructions Recorded Confirmed Last Taken Type albuterol sulfate 90 mcg/actuation 2 puff INHALATION Q6H PRN 03/09/20 03/21/20 03/20/20 History aerosol inhaler norethindrone (contraceptive) 0.35 0.35 mg PO DAILY 03/09/20 03/21/20 03/21/20 History mg tablet sertraline 50 mg tablet 50 mg PO DAILY 03/09/20 03/21/20 03/21/20 History levofloxacin 500 mg tablet 500 mg PO DAILY #5 tab 03/17/20 03/21/20 03/21/20 Rx nicotine 21 mg/24 hr daily 1 patch TRANSDERMA Q24H 28 Days 03/17/20 03/21/20 03/21/20 Rx transdermal patch #28 each albuterol sulfate 0.63 mg/3 mL 0.63 mg INHALATION Q6H PRN 30 Days 03/20/20 03/21/20 03/21/20 Rx solution for nebulization #90 ml Allergies Allergy/AdvReac Type Severity Reaction Status Date / Time No Known Allergies Allergy Verified 03/17/20 10:06 PFSH Acute PFSH: Medical History Asthma with COPD with exacerbation Depression with anxiety H/O juvenile arthritis H/O migraine Lower respiratory infection Social History Smoking and tobacco status: current every day smoker cigarettes Packs smoked per day: 0.5 Years cigarettes smoked: 20 Female Reproductive History: Date of last menstrual period: 12/20/19 Supplemental [facility] Information: Reviewed past medical, surgical family history and social history from old records but unfortunately unable to obtain from patient secondary to sedation currently. Attempted to call family, but number disconnected. Vitals/I&O/Wt Last Vital Signs Temp 97.9 F 03/21/20 13:48 Pulse 96 03/21/20 20:45 Resp 14 03/21/20 20:35 BP 115/81 03/21/20 20:45 Pulse Ox 96 03/21/20 20:45 03/21/20 03/21/20 03/21/20 06:59 14:59 22:59 Intake Total 1454.083 / 1454.083 Output Total Balance 1444.083 / 1444.083 Weight last 48 hrs Weight 86.183 kg Physical Exam Narrative: EXAM NARRATIVE: General exam is a sedated white female, with tracheostomy tube on ventilator. Nurse alerts me that when her sedation was lessened she was able to move all extremities, and attempted to talk. HEENT: Pupils equally round. Oropharynx clear. Very poor dentition. Neck is supple, tracheostomy noted Cardiovascular regular rate and rhythm without murmur, no S3 or S4 Lungs clear no wheezing or crackles Abdomen is soft positive bowel sounds, no obvious organomegaly was deferred Extremities no cyanosis clubbing or edema Neuro no obvious focal deficits, spontaneously moves extremities Skin no rash Urinary Catheter Management^: Ceja: Cath Placed During This Visit: yes Urinary Catheter Date of Insertion: 03/21/20 Urinary Catheter Time of Insertion: 20:30 Data : 03/21/20 14:20 03/21/20 14:20 Micro: Microbiology 03/21/20 14:15 Blood Culture - Preliminary Blood SPECIMEN COLLECTED 03/21/20 14:20 Blood Culture - Preliminary Blood SPECIMEN COLLECTED A&P Assessment and plan (1) Respiratory failure: Secondary to vocal cord issues with recent history of antibiotic use. For now as I could not rule out infectious cause she was started on vancomycin and Zosyn Check procalcitonin Secondary to edema initiate Solu-Medrol At this point she will rest overnight, and I suspect her sedation to be lessened tomorrow if no issues with tracheostomy. 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 Further work-up may be needed. Differential considerations of mass also included sarcoid, tumor but these would be apparent on biopsy. As Wgener's also a possibility C- ANCA also ordered. Status: Acute (3) Airway obstruction: Definitive treatment with tracheostomy was performed acutely by Dr. Delgado Status: Acute (4) Leukocytosis: Antibiotics as noted. May also be demargination from severe stress with respiratory failure Status: Acute (5) Hyponatremia: Mild, but will check TSH and cortisol level Status: Acute (6) Hypokalemia: Supplement Status: Acute Additional A&P Information History of tobacco use Full code SCDs for DVT prophylaxis, holding anticoagulation secondary to directly postoperative. GI prophylaxis with Pepcid Attempted to call contact, but number has been disconnected. Attestations Medical Necessity Statement*: Will need greater than 2 midnight stay for respiratory failure with airway obstruction requiring tracheostomy. Critical Care Time: 45 minutes spent in care for patient at bedside discussing with subspecialists, evaluation, and this patient with airway obstruction requiring acute trip to the operating room for tracheostomy and ICU care. Initially had imminent threat to decompensation and . Critical Care Time (min): 45 Coding Level of Care Code Acute Motivational Speaker for Verito Randle Diagnoses Respiratory failure J96.90 Vocal cord mass J38.3 Airway obstruction J98.8 Leukocytosis D72.829 Hyponatremia E87.1 Hypokalemia E87.6
[2020-03-21 22:47] LABS: HCG, Serum Qual Negative (Negative)
[2020-03-21 22:51] LABS: Magnesium 1.9 mg/dL (1.7-2.3)
[2020-03-21] MEDS: sodium chlor 0.9% + KCl 20 mEq 20 MEQ/1,000 ML BAG 100 MEQ IV (23:35)
[2020-03-22] VITALS (240 sets, daily range): BP systolic 90–127; BP diastolic 52–80; PULSE 53–115; RESP 13–26; TEMP 36.4–36.7; O2SAT 96–100
[2020-03-22 00:39] LABS: Procalcitonin 0.04 ng/mL (0-0.5); Thyroid Stimulating Hormone 0.16 uIU/mL (0.27-4.20)
[2020-03-22 00:50] LABS: Magnesium 1.9 mg/dL (1.7-2.3)
[2020-03-22 01:00] LABS: Cortisol Random 7.12 ug/mL (2.47-19.5)
[2020-03-22 01:23] LABS: Estmated Average Glucose 123; Hemoglobin A1C 5.9 % (4.0-6.0)
[2020-03-22] MEDS: piperacillin-tazobactam 3.375 GM in sodium chloride 0.9% (plus) 50 ML IV ×3 (02:23→18:13)
[2020-03-22] MEDS: vancomycin 1,000 MG in sodium chloride 0.9% 250 ML 250 MG IV ×2 (04:31→13:05)
[2020-03-22] MEDS: propofol 1,000 MG/100 ML INJ 7.8 MG IV ×2 (04:31→08:09)
[2020-03-22 05:11] LABS: Basophils % 0.1 %; Hematocrit 36.2 % (37.0-47.0); Hemoglobin 11.9 g/dL (11.5-15.3); Lymphocytes # 1.2 10^3/uL (0.8-4.8); Lymphocytes % 10.5 %; Mean Corpuscular HGB Conc 32.9 g/dL (30.0-36.0); Mean Corpuscular Volume 88.1 fL (81-99); Mean Platelet Volume 10.3 fL (7.4-10.4); Monocytes # 0.1 10^3/uL (0.2-0.9); Monocytes % 1.2 %; Neutrophils # 9.66 10^3/uL (1.8-7.7); Neutrophils % 87.7 %; Nucleated Red Blood Cells % 0 %; Platelet Count 304 10^3/cmm (130-400); Red Blood Count 4.11 10^6/uL (4.1-5.3); Red Cell Distribution Width 12.1 % (12.1-15.1)
--- NOTE | 2020-03-22 05:22 | P.PN_ITS ---
Subjective Subjective: Interval history: 35 yo wf who is POD #1 s/p emergency tracheotomy. She is doing well by nursing report. The patient is awake and responsive. She is without c/o. Vitals/I&O/Wt Last Vital Signs Temp 98.1 F 03/22/20 04:00 Pulse 89 03/22/20 04:10 Resp 14 03/22/20 04:59 BP 90/60 03/22/20 04:10 Pulse Ox 96 03/22/20 04:10 03/21/20 03/21/20 03/22/20 14:59 22:59 06:59 Intake Total 1704.083 / 1704.083 70.04 / 1774.123 Output Total 710 / 710 400 / 1110 Balance 994.083 / 994.083 -329.96 / 664.123 Weight last 48 hrs Weight 86.183 kg Physical Exam Const: COMMON NORMALS: no acute distress and average body habitus HENMT: COMMON NORMALS: normocephalic HEAD & SCALP: normocephalic FACE & SINUS: normal facial exam Eye: COMMON NORMALS: EOMs intact bilaterally and conjunctivae normal CONJUNCTIVA: Yes conjunctivae normal Neck/C-Spine: COMMON NORMALS: full ROM and no lymphadenopathy CERVICAL SPINE: Yes other (The tracheotomy tube is in place and without erythema or di scharge.) Urinary Catheter Management^: Ceja: Cath Placed During This Visit: yes Urinary Catheter Date of Insertion: 03/21/20 Urinary Catheter Time of Insertion: 20:30 Data : 03/22/20 04:46 03/21/20 14:20 Micro: Microbiology 03/21/20 14:15 Blood Culture - Preliminary Blood SPECIMEN COLLECTED 03/21/20 14:20 Blood Culture - Preliminary Blood SPECIMEN COLLECTED A&P Additional A&P Information Impression: 1) POD #1 s/p tracheotomy for acute airway obstruction - now stable 2) 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 I will perform her first trach changed on about POD #7 2) Await biopsy performed at surgery. I recommend an ANCA panel and a w/u for Sarcoidosis. Attestations Medical Necessity Statement*: I was consulted to secure the airway Coding Level of Care Code Acute Undercar Specialist for Verito Randle
[2020-03-22 05:41] LABS: Alanine Aminotransferase 16 U/L (0-33); Albumin Level 3.5 g/dL (3.5-5.2); Alkaline Phosphatase 75 IU/L (35-105); Aspartate Amino Transferase 16 U/L (0-32); Blood Urea Nitrogen 7 mg/dL (6-20); Calcium 8.5 mg/dL (8.5-10.5); Carbon Dioxide 21 mmol/L (22-29); Chloride 105 mmol/L (98-107); Creatinine Clr Calc Pharmacy 210.5249; Globulin 2.2 g/dL (1.3-4.6); Glomerular Filtration Rate 182.7 mL/min (90-130); Glucose 127 mg/dL (65-115); Osmolality Calculated 273 mOsm/kg (285-295); Sodium 133 mmol/L (136-145); Total Bilirubin 0.3 mg/dL (0.15-1.2); Total Protein 5.7 g/dL (6.6-8.7)
--- NOTE | 2020-03-22 05:49 | PC.NURSE ---
Shift Summary rcd patient from OR at 2205. patient stable and vital signs WNL. small bleeding around trach. propofol running at 2mcg/min. fentanyl running at 25mcg. nurse attempted to call [employer], person on chart to notify, with no success. phone number is not activated. 0200 patient awake and able to communicate with nurse and RT. patient denies any pain at this time. wrist restraints taken off patient. informed that if she attempts to pull at tubes she could cause harm to self. patient understands this informations and states that she will not pull at any tubes or lines. 0330 patient able to give nurse phone numbers to contact. Dequan (patients boyfriend) [phone]. Mago (family friend) [phone]. verbal okay by patient to give information to these people. vital signs wnl. patient reports she is not in pain. will continue to monitor.
[2020-03-22 05:53] LABS: Free T4 Free Thyroxine 2.44 ng/dL (0.82-1.77); T3 Free 5.4 PG/ML (2.0-4.4)
[2020-03-22 06:25] LABS: Erythrocyte Sedimentation Rate 15 mm/hr (0-15)
--- NOTE | 2020-03-22 06:56 | P.CONIM_ITS ---
Providers/Reason For Consult Consulting Physican/Specialty*: Pulmonary critical care medicine Reason for Consult*: Throat and airway Attending Physician: Bunny Jiang MD Primary Care Provider: Chanel Omalley History of Present Illness History of Present Illness Vilma Conner is a 35 year old female who had evaluated on March 21. The patient presented to the emergency department with worsening shortness of breath. From the history, it appears that the patient was suffering from bronchitis and upper respiratory infection-like symptoms for about a week received steroid and antibiotic as outpatient however her shortness of breath progressed prompting the emergency room visit. When I evaluated the patient in the ED yesterday, the patient was in mild distress. She had audible stridor however she was still able to answer questions and follow commands. She also had voice change and she was unable to continue a prolonged conversation. She had a CT scan of her neck which showed significant swelling of the vocal cords with formula meter airway. The decision was made to proceed with awake fiberoptic bronchoscopic intubation. Dr. Waddell was also present and had performed a laryngoscopy. The left vocal cord was paralyzed with swelling of the right vocal cords. Several attempts were made to intubate the patient bronchoscopically however this was difficult because of inadequate sedation. Eventually the attempts were aborted. At this point, the patient was able to maintain her oxygen saturation and able to answer questions. In the next 10 to 15 minutes, the patient was noted to have worsening suprasternal retraction with inspiration and the decision was made to secure a surgical airway. The initial attempts for critical thyroidectomy had failed and subsequently the patient was taken to the OR and tracheostomy was performed. Post tracheostomy return endoscopy revealed completely occluded opening of the vocal cords. Review of Systems General: Reports: ROS unobtainable due to medical condition Meds/Allergies Home Medications and Allergies Home Medications Medication Instructions Recorded Confirmed Last Taken Type albuterol sulfate 90 mcg/actuation 2 puff INHALATION Q6H PRN 03/09/20 03/21/20 03/20/20 History aerosol inhaler norethindrone (contraceptive) 0.35 0.35 mg PO DAILY 03/09/20 03/21/20 03/21/20 History mg tablet sertraline 50 mg tablet 50 mg PO DAILY 03/09/20 03/21/20 03/21/20 History levofloxacin 500 mg tablet 500 mg PO DAILY #5 tab 03/17/20 03/21/20 03/21/20 Rx nicotine 21 mg/24 hr daily 1 patch TRANSDERMA Q24H 28 Days 03/17/20 03/21/20 03/21/20 Rx transdermal patch #28 each albuterol sulfate 0.63 mg/3 mL 0.63 mg INHALATION Q6H PRN 30 Days 03/20/20 03/21/20 03/21/20 Rx solution for nebulization #90 ml Allergies Allergy/AdvReac Type Severity Reaction Status Date / Time No Known Allergies Allergy Verified 03/17/20 10:06 Current Medications Current Medications Generic Name Dose Route Start Last Admin Trade Name Freq PRN Reason Stop Dose Admin Famotidine 20 mg 03/21/20 20:39 03/21/20 21:03 Pepcid Inj IVP 20 mg Q12H YORDY Administration Fentanyl 1,000 mcg/ Sodium 100 mls @ 0 mls/hr 03/21/20 18:00 03/21/20 21:43 Chloride IV 50 mcg/hr .Q0M YORDY 5 mls/hr Titration Protocol Per Protocol Propofol 1,000 mg in 100 mls @ 0 mls/hr 03/21/20 18:00 03/22/20 04:31 Diprivan IV 15 mcg/kg/min .Q0M YORDY 7.8 mls/hr Administration Protocol Per Protocol Vancomycin HCl 1,000 mg/ 250 mls @ 250 mls/hr 03/21/20 21:00 03/22/20 04:31 Sodium Chloride IV 250 mls/hr Q8H YORDY Administration Protocol As Directed Piperacillin Sod/Tazobactam 50 mls @ 12.5 mls/hr 03/22/20 02:00 03/22/20 02:23 Sod 3.375 gm/ Sodium Chloride IV 12.5 mls/hr Q8H YORDY Administration Protocol As Directed Potassium Chloride/Sodium Chloride 20 meq in 1,000 mls @ 100 mls/hr 03/21/20 23:00 03/21/20 23:35 Sodium Chlor 0.9% + Kcl 20 Meq IV 100 mls/hr .Q10H YORDY Administration Methylprednisolone Sodium Succinate 60 mg 03/21/20 20:39 03/22/20 02:23 Solu-Medrol IVP 60 mg Q6H YORDY Administration PFSH Acute PFSH: Medical History Asthma with COPD with exacerbation Depression with anxiety H/O juvenile arthritis H/O migraine Lower respiratory infection Social History Smoking and tobacco status: current every day smoker cigarettes Packs smoked per day: 0.5 Years cigarettes smoked: 20 Female Reproductive History: Date of last menstrual period: 12/20/19 Vitals/I&O/Wt Last Vital Signs Temp 98.1 F 03/22/20 04:00 Pulse 73 03/22/20 06:05 Resp 14 03/22/20 04:59 BP 103/63 03/22/20 06:05 Pulse Ox 97 03/22/20 06:05 03/21/20 03/21/20 03/22/20 14:59 22:59 06:59 Intake Total 1704.083 / 1704.083 70.04 / 1774.123 Output Total 710 / 710 400 / 1110 Balance 994.083 / 994.083 -329.96 / 664.123 Weight last 48 hrs Weight 191 lb Weight 190 lb Physical Exam Narrative: EXAM NARRATIVE: General: Patient is awake alert and oriented, in mild to moderate distress,, audible stridor Neck: No JVD, no cervical or supraclavicular lymphadenopathy. Respiratory: Inspection: No visible deformity of the chest wall Palpation: Trachea is midline Auscultation: Reduced breath sound bilaterally Cardiovascular: Regular rate and rhythm, S1-S2 present, no murmur, no peripheral edema. Abdomen: Soft, nontender, nondistended, positive bowel sound Musculoskeletal: No obvious joint deformity Skin: No rash, no evidence of erythema nodosum or multiforme. Neuro: Mental status is normal, no gross cranial nerve deficit, normal motor and coordination. Urinary Catheter Management^: Ceja: Cath Placed During This Visit: yes Urinary Catheter Date of Insertion: 03/21/20 Urinary Catheter Time of Insertion: 20:30 Data Micro: Micro: Microbiology 03/21/20 14:15 Blood Culture - Pr eliminary Blood SPECIMEN [facility]LE LAMONTE 03/21/20 14:20 Blood Culture - Pr eliminary Blood SPECIMEN [facility] Other Data: Attestation for Other Data: I personally reviewed and interpreted the following: Other data: I reviewed the patient etiology, microbiologic and laboratory data A&P Assessment and plan (1) Airway obstruction: This is a 35-year-old woman that I had seen yesterday for threatened airway. Likely secondary to upper airway infection and inflammation leading to left vocal cord paralysis and significant swelling of the right vocal cord. Multiple attempts were made with awake fiberoptic bronchoscopic intubation however that it failed because to inadequate sedation and incorporation by the patient. Subsequently the patient had undergone tracheostomy and the airway was secured. I thank Dr. Waddell for all his assistance with the patient. Status: Acute Coding Level of Care Code Acute Pharm Tech for [facility] Diagnoses Airway obstruction J98.8
--- NOTE | 2020-03-22 07:27 | XR_ITS ---
WS: [id number] PORTABLE CHEST HISTORY: Respiratory failure COMPARISON: 03/21/2020 Tracheostomy has been placed since the prior study. Lungs are clear and well expanded. No pleural effusion or pneumothorax. Cardiac size: Normal. Mediastinum/Aorta: Normal mediastinum. No osseous abnormality seen. Continued soft tissue thickening in the subglottic airway. XR/XR chest 1V portable [id number] IMPRESSION: Tracheostomy in good position. Lungs are clear.
[2020-03-22] MEDS: famotidine 20 mg/2 mL INJ IVP ×2 (08:07→20:59)
[2020-03-22] MEDS: sodium chlor 0.9% + KCl 20 mEq 20 MEQ/1,000 ML BAG 100 MEQ IV ×2 (08:08→19:14)
--- NOTE | 2020-03-22 08:12 | PC.CHAP ---
Pastoral Care Encounter/Spiritual Assessment Type of Contact [] Declined curriculum and instruction specialist visit [] Patient/Family/Request visit [] Outpatient visit [] Follow-up visit [] Physician referral [] Code/Alert [x] Routine visit [] Staff referral [] Actively dying [] Patient sleeping [] Family support [] [] Out of room [] Palliative care [] [] Receiving care in room [] Pre-surgical visit [] Trauma [] Long length of stay [] ICU visit [x] Other: isolation Relational/Emotional Strength [] Patient feels connected with others/family/visitors/staff [] Distress [] Loneliness/isolation [] Abandonment Spirituality of Patient [] Person of Mary [] Attends Religion of their Mary [] Believes in Prayer [] Reads Bible or Advent materials [] There are Spiritual issues to be addressed Document Image Technician Interventions [x Prayer [] Active listening [] Non-anxious presence [] Spiritual/emotional support [] Crisis/trauma care [] Spiritual counseling [] Bereavement support [] Provided bereavement packet [] Provided Bible/devotional materials [] Provided toy/stuffed animal, coloring book to patient or family member [] Provided Communion [] Anointing/[place] [] Salvation [x] Completed spiritual assessment [] Other: Impact on Illness or Injury [] Angry [] Fearful [] Anxious [] Often cries [] Exhaustion [] Unable to work [] Unable to attend moravian [] Unable to walk/stand [] Unable to read [] Unable to drive [] Unable to eat/drink [] Unable to sleep [] Unable to be with family [] Patient intubated [] Other: Summary Time spent with patient
--- NOTE | 2020-03-22 08:54 | P.PN_ITS ---
Subjective Subjective: Interval history: Chart reviewed, POD # 1 s/p emergent tracheostomy following inability to secure airway in ER where she presented with difficulty breathing. On sedation, IV steroids and IV antibiotics. Normotensive, afebrile, had 1100 mL urine output overnight, decreasing leukocytosis, stable hemoglobin, stable renal function. Easily arousable, easy to engage, remains on isolation precautions pending COVID-19 test results. Medications: Reviewed: Yes Medication Review Details: Active Medications Generic Name Dose Route Start Last Admin Trade Name Freq PRN Reason Stop Dose Admin Famotidine 20 mg 03/21/20 20:39 03/22/20 08:07 Pepcid Inj IVP 20 mg Q12H YORDY Administration Fentanyl 1,000 mcg / Sodium 100 mls @ 0 mls/h r 03/21/20 18:00 03/21/20 21:43 Chloride IV 50 mcg/hr .Q0M YORDY 5 mls/hr Titration Protocol Per Protocol Propofol 1,000 mg in 100 m ls @ 0 mls/hr 03/21/20 18:00 03/22/20 08:09 Diprivan IV 15 mcg/kg/min .Q0M YORDY 7.8 mls/hr Administration Protocol Per Protocol Vancomycin HCl 1,0 00 mg/ 250 mls @ 250 mls /hr 03/21/20 21:00 03/22/20 07:51 Sodium Chloride IV Infused Q8H YORDY Infusion Protocol As Directed Piperacillin Sod/T azobactam 50 mls @ 12.5 mls /hr 03/22/20 02:00 03/22/20 07:51 Sod 3.375 gm/ So dium Chloride IV Infused Q8H YORDY Infusion Protocol As Directed Potassium Chloride /Sodium Chloride 20 meq in 1,000 m ls @ 100 mls/hr 03/21/20 23:00 03/22/20 08:08 Sodium Chlor 0.9 % + Kcl 20 Meq IV 100 mls/hr .Q10H YORDY Administration Methylprednisolone Sodium Succinate 60 mg 03/21/20 20:39 03/22/20 08:07 Solu-Medrol IVP 60 mg Q6H YORDY Administration Ondansetron HCl 4 mg 03/21/20 20:39 Zofran IVP Q6H PRN NAUSEA AND VOMITI NG No Known Allergies Allergy (Verified 03/17/20 10:06) Vitals/I&O/Wt Last Vital Signs Temp 98.0 F 03/22/20 08:00 Pulse 88 03/22/20 08:30 Resp 14 03/22/20 07:38 BP 102/63 03/22/20 08:30 Pulse Ox 99 03/22/20 08:30 03/21/20 03/22/20 03/22/20 22:59 06:59 14:59 Intake Total 1704.083 / 1704.083 70.04 / 2111.416 1559.34 / 1183.34 Output Total 710 / 710 400 / 1110 Balance 994.083 / 994.083 -329.96 / 048.638 8943.34 / 1183.34 Weight last 48 hrs Weight 86.636 kg Weight 86.183 kg Physical Exam Const: COMMON NORMALS: no acute distress and patient oriented x3 GENERAL APPEARANCE: cooperative and comfortable ORIENTATION/CONSCIOUSNESS: Yes awake HENMT: COMMON NORMALS: normocephalic, atraumatic, hearing grossly normal bilaterally and moist oral mucous membranes HEAD & SCALP: normocephalic and atraumatic Eye: COMMON NORMALS: Equal, round and reactive pupils present, EOMs intact bilaterally and conjunctivae normal CONJUNCTIVA: Yes conjunctivae normal PUPIL: Yes Equal, round and reactive pupils present Neck/C-Spine: COMMON NORMALS: full ROM GENERAL: Yes normal visual inspection and Yes trachea midline Resp: COMMON NORMALS: normal respiratory effort, No retractions, No use of accessory muscles and clear to auscultation bilaterally EFFORT & INSPECTION: Yes able to speak in complete sentences, Yes symmetric chest movement and No tachypneic AUSCULTATION: clear to auscultation bilaterally Cardio: COMMON NORMALS: regular rate, regular rhythm, S1 normal heart sound present, S2 normal heart sound present and No murmurs present (Cardio) RATE: regular rate RHYTHM: regular rhythm HEART SOUNDS: S1 normal heart sound present and S2 normal heart sound present GI: COMMON NORMALS: Normal to inspection, nondistended, normoactive bowel sounds present, Soft to palpation and non-tender PALPATION: Yes Soft to palpation Extremity: COMMON NORMALS: normal to inspection, full ROM and no clubbing, cyanosis or edema; negative for no pedal edema Neuro: COMMON NORMALS: patient oriented x3, moves all extremities, no focal motor deficits, no sensory deficits noted and gait normal Psych: COMMON NORMALS: mental status grossly normal, Normal thought process present, cooperative, normal affect and speech normal SPEECH: Yes normal speech THOUGHT PROCESS: Normal thought process present Skin: COMMON NORMALS: no rashes or lesions noted, no jaundice, no petechiae and no mottling GENERAL SKIN EXAM: no rashes or lesions noted Urinary Catheter Management^: Ceja: Cath Placed During This Visit: yes Urinary Catheter Date of Insertion: 03/21/20 Urinary Catheter Time of Insertion: 20:30 Data : 03/22/20 04:46 03/22/20 04:46 Micro: Microbiology 03/21/20 14:15 Blood Culture - Preliminary Blood SPECIMEN COLLECTED 03/21/20 14:20 Blood Culture - Preliminary Blood SPECIMEN COLLECTED A&P Assessment and plan (1) Airway obstruction: -Status post emergent tracheostomy following significant difficulty securing airway in ER; POD # 1. Found to have an irregular polypoid swelling of R true vocal cord, biopsied, f/u pathology. Noted left vocal cord paralysis -appreciate consults from Dr. Waddell and Dr. Doran -on sedation, wean as tolerated to trach collar if need for oxygen support once off vent -continue IV steroids, dual IV antibiotics -imaging reviewed -had been treated with outpatient antibiotics and steroids -wide differential including Tyree's granulomatosis, f/u [facility]; HIV negative Status: Acute (2) Vocal cord mass: -as noted above Status: Acute (3) Respiratory failure: -as noted above -rapid COVID-19 test negative, confirmatory testing pending; on isolation precautions Status: Acute Qualifiers: Chronicity: acute Respiratory failure complication: unspecified whether with hypoxia or hypercapnia Qualified Code(s): J96.00 - Acute respiratory failure, unspecified whether with hypoxia or hypercapnia (4) Leukocytosis: -likely reactive due to stress from acute respiratory failure -trending down, continue to monitor Status: Acute Qualifiers: Leukocytosis type: unspecified Qualified Code(s): D72.829 - Elevated white blood cell count, unspecified (5) Hypokalemia: Status: Resolved (6) Hyponatremia: -improving Status: Acute Additional A&P Information -Morbid obesity: BMI-33 kg/m2 -NPO until edema improves and able to swallow safely -GI ppx with Famotidine -DVT ppx with SCDs -Dispo: pending clinical improvement -Code status: FULL code -ICU care due to trach-vent support, sedation, acute respiratory failure Attestations Medical Necessity Statement*: Patient requires hospitalization for continued management of acute respiratory failure, airway obstruction, on trach-vent support, IV antibiotics and steroids. Time Spent in Patient Care: Greater than 35 minutes (>than 50% of time spent in counselling and/or direct pt care on unit) . Coding Level of Care Code Acute Assistant for [facility] Fwd Exam Comprehensive Diagnoses Airway obstruction J98.8 Vocal cord mass J38.3 Respiratory failure J96.00 Chronicity: acute Respiratory failure complication: unspecified whether with hypoxia or hypercapnia Leukocytosis D72.829 Leukocytosis type: unspecified Hypokalemia E87.6 Hyponatremia E87.1
--- NOTE | 2020-03-22 10:40 | PC.RESP ---
Smoking Cessation and Pulmonary Rehab information sent to patient.
[2020-03-22 19:39] LABS: HIV 1 & 2 Antigen Non-Reactive (Non-Reactiv)
[2020-03-22 19:40] LABS: HIV 1 & 2 Antibody Non-Reactive (Non-Reactiv)
[2020-03-22 20:45] LABS: Vancomycin Trough 9.2 ug/mL (10-15)
--- NOTE | 2020-03-22 21:26 | PC.NURSE ---
spontaneous breathing trial to HAG RT placed patient on HAG. patient tolerated well. vital signs WNL. no complaints by the patient. will continue to monitor.
--- NOTE | 2020-03-22 23:05 | PC.PHAR ---
Vancomycin trough level at 1000mg IVPB every 8 hours is 9.2. Dosage is increased to 1250mg IVPB every 8 hours with trough to be obtained before fourth 1250mg dose.
[2020-03-23] VITALS (233 sets, daily range): BP systolic 98–138; BP diastolic 58–85; PULSE 46–123; RESP 9–31; TEMP 36.8–37.2; O2SAT 94–100
[2020-03-23] MEDS: fentaNYL 50 mcg/mL INJ 2mL 25 MCG IVP ×3 (01:46→20:44)
[2020-03-23] MEDS: piperacillin-tazobactam 3.375 GM in sodium chloride 0.9% (plus) 50 ML IV ×3 (01:46→18:07)
--- NOTE | 2020-03-23 01:50 | PC.NURSE ---
Narcotic waste 90ML of fentanly wasted by JANIE Kelly. witnessed by JANIE Silvestre.
[2020-03-23] MEDS: sodium chlor 0.9% + KCl 20 mEq 20 MEQ/1,000 ML BAG 100 MEQ IV ×2 (05:22→15:31)
--- NOTE | 2020-03-23 05:28 | PM.PN ---
Subjective Subjective: Interval history: 35 yo wf who is POD #2 s/p tracheotomy doing well from this standpoint. The patient denies any pain in the area, and is o/w without c/o. Vitals/I&O/Wt Last Vital Signs Temp 98.1 F 03/22/20 20:00 Pulse 76 03/23/20 04:35 Resp 17 03/23/20 04:35 BP 124/76 03/23/20 04:35 Pulse Ox 97 03/23/20 04:35 03/22/20 03/22/20 03/23/20 14:59 22:59 06:59 Intake Total 1333.10 / 1333.10 1098.823 / 2431.923 1300 / 3731.923 Output Total 600 / 600 300 / 900 1750 / 2650 Balance 733.10 / 733.10 798.823 / 1531.923 -450 / 1081.923 Weight last 48 hrs Weight 86.636 kg Weight 86.183 kg Physical Exam HENMT: COMMON NORMALS: normocephalic, atraumatic, hearing grossly normal bilaterally, external ears normal and Normal external nose present HEAD & SCALP: normal to inspection, normocephalic and atraumatic FACE & SINUS: normal facial exam NOSE: Normal external nose present EXTERNAL EAR: Yes external ears normal MOUTH: Normal oral and palatal mucosa present Eye: COMMON NORMALS: EOMs intact bilaterally and conjunctivae normal CONJUNCTIVA: Yes conjunctivae normal Neck/C-Spine: COMMON NORMALS: full ROM, no lymphadenopathy and Thyroid normal GENERAL: Yes other (The trach site is without erythema or induration.) THYROID: Thyroid normal Lymph: LYMPHATIC: no lymphadenopathy noted Urinary Catheter Management^: Ceja: Cath Placed During This Visit: yes Reason for Continuing Indwelling Catheter: Accurate Measurement of Urinary Output in Critically Ill Patients Urinary Catheter Date of Insertion: 03/21/20 Urinary Catheter Time of Insertion: 20:30 Data : 03/22/20 04:46 03/22/20 04:46 Micro: Microbiology 03/22/20 09:10 Gram Stain - Final Sputum - Endotracheal Tube Aspirate 03/21/20 14:15 Blood Culture - Preliminary Blood NEGATIVE TO DATE 03/21/20 14:20 Blood Culture - Preliminary Blood NEGATIVE TO DATE A&P Additional A&P Information Impression: 1) POD #2 s/p tracheotomy doing well 2) Airway Obstruction: the DDx includes neoplasm, Enrique's granulomatosis/Granulomatosis with polyangiitis, Sarcoidosis, amyloidosis, or an infectious etiology Plan: 1) I will change the patient's trach around POD #7. I will follow with you. I reviewed the patient's preop neck CT and pre and post op CXRs. 2) Await results of path and laboratory evaluation. I will make further recommendations once available. Attestations Medical Necessity Statement*: I was consulted to manage the airway. Coding Level of Care Code Acute Customer Care Voice Consultant for [facility]
[2020-03-23 06:04] LABS: Alanine Aminotransferase 18 U/L (0-33); Albumin Level 3.5 g/dL (3.5-5.2); Alkaline Phosphatase 70 IU/L (35-105); Anion Gap 11.8 (5-19); Aspartate Amino Transferase 12 U/L (0-32); Blood Urea Nitrogen 10 mg/dL (6-20); Calcium 8.3 mg/dL (8.5-10.5); Carbon Dioxide 23 mmol/L (22-29); Chloride 108 mmol/L (98-107); Globulin 2.5 g/dL (1.3-4.6); Glomerular Filtration Rate 141.2 mL/min (90-130); Glucose 115 mg/dL (65-115); Osmolality Calculated 285 mOsm/kg (285-295); Potassium 3.8 mmol/L (3.5-5.1); Sodium 139 mmol/L (136-145); Total Bilirubin 0.2 mg/dL (0.15-1.2)
[2020-03-23] MEDS: famotidine 20 mg/2 mL INJ IVP ×2 (07:43→20:43)
[2020-03-23 08:20] LABS: Quest SARS-CoV-2 RNA NOT DETECTED (NOT DETECTED)
--- NOTE | 2020-03-23 08:45 | PC.NURSE ---
intermittent productive cough, suctions trach with yanker independently. shakes head yes and no, able to mouth words, very quiet whisper at times, Trach site dry and intact with scant amount dried blood no redness noted, regular unlabored RR, regular HR&R, abdomen soft non tender and non distended, pedal and radial pulses +3, supine 45 degrees call light within reach
--- NOTE | 2020-03-23 08:57 | P.PN_ITS ---
Subjective Subjective: Interval history: Sedation discontinued overnight, hemodynamically stable, had 1750 mL urine output overnight, is POD # 2 s/p emergent tracheostomy. COVID-19 testing negative, off isolation precautions. Extubated earlier this morning, trach collar in place. Resting quietly in bed, no apparent distress. Noted increased leukocytosis which is likely steroid- induced, labs otherwise unremarkable. Remains on dual antibiotic treatment. Medications: Reviewed: Yes Medication Review Details: Active Medications Generic Name Dose Route Start Last Admin Trade Name Freq PRN Reason Stop Dose Admin Famotidine 20 mg 03/21/20 20:39 03/23/20 07:43 Pepcid Inj IVP 20 mg Q12H YORDY Administration Fentanyl 25 mcg 03/23/20 01:27 03/23/20 07:52 Sublimaze IVP 25 mcg Q4H PRN Administration PAIN Fentanyl 1,000 mcg / Sodium 100 mls @ 0 mls/h r 03/21/20 18:00 03/22/20 21:09 Chloride IV 0 mcg/hr .Q0M YORDY 0 mls/hr Titration Protocol Per Protocol Propofol 1,000 mg in 100 m ls @ 0 mls/hr 03/21/20 18:00 03/22/20 20:30 Diprivan IV Infused .Q0M YORDY Titration Protocol Per Protocol Piperacillin Sod/T azobactam 50 mls @ 12.5 mls /hr 03/22/20 02:00 03/23/20 01:46 Sod 3.375 gm/ So dium Chloride IV 12.5 mls/hr Q8H YORDY Administration Protocol As Directed Potassium Chloride /Sodium Chloride 20 meq in 1,000 m ls @ 100 mls/hr 03/21/20 23:00 03/23/20 05:22 Sodium Chlor 0.9 % + Kcl 20 Meq IV 100 mls/hr .Q10H YORDY Administration Vancomycin HCl 1,2 50 mg/ 250 mls @ 250 mls /hr 03/22/20 22:00 03/23/20 06:16 Sodium Chloride IV 250 mls/hr Q8H YORDY Administration Protocol As Directed Lorazepam 0.5 mg 03/23/20 01:28 Ativan IVP Q6H PRN ANXIETY Methylprednisolone Sodium Succinate 60 mg 03/21/20 20:39 03/23/20 07:44 Solu-Medrol IVP 60 mg Q6H YORDY Administration Ondansetron HCl 4 mg 03/21/20 20:39 Zofran IVP Q6H PRN NAUSEA AND VOMITI NG No Known Allergies Allergy (Verified 03/17/20 10:06) Vitals/I&O/Wt Last Vital Signs Temp 98.1 F 03/22/20 20:00 Pulse 92 03/23/20 06:05 Resp 22 H 03/23/20 07:52 BP 99/85 03/23/20 06:05 Pulse Ox 98 03/23/20 07:52 03/22/20 03/23/20 03/23/20 22:59 06:59 14:59 Intake Total 1098.823 / 2431.923 1300 / 3731.923 Output Total 300 / 900 1750 / 2650 Balance 798.823 / 1531.923 -450 / 1081.923 Weight last 48 hrs Weight 85.729 kg Weight 86.636 kg Weight 86.183 kg Physical Exam Const: COMMON NORMALS: no acute distress and patient oriented x3 GENERAL APPEARANCE: cooperative and comfortable NUTRITIONAL APPEARANCE: obese ORIENTATION/CONSCIOUSNESS: Yes awake HENMT: COMMON NORMALS: normocephalic, atraumatic, hearing grossly normal bilaterally and moist oral mucous membranes HEAD & SCALP: normocephalic and atraumatic Eye: COMMON NORMALS: Equal, round and reactive pupils present, EOMs intact bilaterally and conjunctivae normal CONJUNCTIVA: Yes conjunctivae normal PUPIL: Yes Equal, round and reactive pupils present Neck/C-Spine: GENERAL: Yes tracheostomy present (Trach collar in place, no noted erythema or bleeding currently) Resp: COMMON NORMALS: normal respiratory effort, No retractions, No use of accessory muscles and clear to auscultation bilaterally EFFORT & INSPECTION: Yes able to speak in complete sentences, Yes symmetric chest movement and No tachypneic AUSCULTATION: clear to auscultation bilaterally Cardio: COMMON NORMALS: regular rate, regular rhythm, S1 normal heart sound present, S2 normal heart sound present and No murmurs present (Cardio) RATE: regular rate RHYTHM: regular rhythm HEART SOUNDS: S1 normal heart sound present and S2 normal heart sound present GI: COMMON NORMALS: Normal to inspection, nondistended, normoactive bowel sounds present, Soft to palpation and non-tender PALPATION: Yes Soft to palpation Extremity: COMMON NORMALS: normal to inspection, full ROM and no clubbing, cyanosis or edema; negative for no pedal edema Neuro: COMMON NORMALS: patient oriented x3, moves all extremities, no focal motor deficits and no sensory deficits noted Psych: COMMON NORMALS: mental status grossly normal, Normal thought process present, cooperative, normal affect and speech normal SPEECH: Yes normal speech THOUGHT PROCESS: Normal thought process present Skin: COMMON NORMALS: no rashes or lesions noted, no jaundice, no petechiae and no mottling GENERAL SKIN EXAM: no rashes or lesions noted Urinary Catheter Management^: Ceja: Cath Placed During This Visit: yes Reason for Continuing Indwelling Catheter: Accurate Measurement of Urinary Output in Critically Ill Patients Urinary Catheter Date of Insertion: 03/21/20 Urinary Catheter Time of Insertion: 20:30 Data : 03/23/20 10:02 03/23/20 04:45 Micro: Microbiology 03/22/20 09:10 Gram Stain - Final Sputum - Endotracheal Tube Aspirate 03/21/20 14:15 Blood Culture - Preliminary Blood NEGATIVE TO DATE 03/21/20 14:20 Blood Culture - Preliminary Blood NEGATIVE TO DATE A&P Assessment and plan (1) Airway obstruction: -Status post emergent tracheostomy following significant difficulty securing airway in ER; POD # 2. Found to have an irregular polypoid swelling of R true vocal cord, biopsied, pathology reported as vocal cord polyp with focal atypia, benign squamous epithelium. Noted left vocal cord paralysis -appreciate consults from Dr. Waddell and Dr. Doran -off sedation, extubated earlier this AM, oxygen support as needed -continue IV steroids, dual IV antibiotics -imaging reviewed -had been treated with outpatient antibiotics and steroids -wide differential including Tyree's granulomatosis, malignancy; f/u C-[facility], Hep C; HIV negative Status: Acute (2) Vocal cord mass: -as noted above Status: Acute (3) Respiratory failure: -as noted above -COVID-19 test negative; off isolation precautions Status: Acute Qualifiers: Chronicity: acute Respiratory failure complication: unspecified whether with hypoxia or hypercapnia Qualified Code(s): J96.00 - Acute respiratory failure, unspecified whether with hypoxia or hypercapnia (4) Leukocytosis: -likely reactive due to stress from acute respiratory failure -trending up likely due to steroids, continue to monitor Status: Acute Qualifiers: Leukocytosis type: unspecified Qualified Code(s): D72.829 - Elevated white blood cell count, unspecified (5) Hypokalemia: Status: Resolved (6) Hyponatremia: -improving Status: Acute Additional A&P Information -Morbid obesity: BMI-33 kg/m2 -NPO until edema improves and able to swallow safely -GI ppx with Famotidine -DVT ppx with SCDs -Dispo: pending clinical improvement -Code status: FULL code -ICU care due to trach, airway obstruction Attestations Medical Necessity Statement*: Patient requires hospitalization for continued management of airway obstruction s/p tracheostomy, on IV steroids and broad spectrum IV antibiotics. Time Spent in Patient Care: 16 - 35 minutes (>than 50% of time spent in counselling and/or direct pt care on unit) . Coding Level of Care Code Acute Food Service Cashier for Chg Fwd Exam Comprehensive Diagnoses Airway obstruction J98.8 Vocal cord mass J38.3 Respiratory failure J96.00 Chronicity: acute Respiratory failure complication: unspecified whether with hypoxia or hypercapnia Leukocytosis D72.829 Leukocytosis type: unspecified Hypokalemia E87.6 Hyponatremia E87.1
[2020-03-23 10:07] LABS: Basophils % 0.1 %; Hematocrit 38.1 % (37.0-47.0); Hemoglobin 12.2 g/dL (11.5-15.3); Lymphocytes # 1.3 10^3/uL (0.8-4.8); Lymphocytes % 5.3 %; Mean Corpuscular Hemoglobin 28.8 pg (28.0-34.0); Mean Corpuscular Volume 89.9 fL (81-99); Mean Platelet Volume 10.3 fL (7.4-10.4); Monocytes # 0.9 10^3/uL (0.2-0.9); Monocytes % 3.5 %; Neutrophils # 22.26 10^3/uL (1.8-7.7); Neutrophils % 90.5 %; Nucleated Red Blood Cells % 0 %; Platelet Count 319 10^3/cmm (130-400); Red Blood Count 4.24 10^6/uL (4.1-5.3); Red Cell Distribution Width 12.5 % (12.1-15.1); White Blood Count 24.6 10^3/uL (4.0-10.0)
--- NOTE | 2020-03-23 14:26 | PC.NURSE ---
area around Trach site cleaned with 1/2 strength vinegar
[2020-03-23 16:52] LABS: ABG PCO2 42.7 mmHg (35-45); ABG PH Result 7.39 (7.35-7.45); Arterial Blood Gas Hematocrit 43.3 % (37-47); Base Excess ABG 0.3 mmol/L (-2.0-2.0); Blood Gas Allen Test Pos; Blood Gas Sample Site Radial, left; Blood Gas Sample Type Arterial; Blood Gas Tidal Volume 0.45; HCO3 ABG 25.6 mmol/L (22-26); Oxygen Device VENT
[2020-03-23 23:17] LABS: Vancomycin Trough 13.3 ug/mL (10-15)
--- NOTE | 2020-03-23 23:22 | PC.NURSE ---
Vancomycin Late Lab came to draw vanc trough at 2050 on 03/23. Vanc IVPB was due to be given at 2200. Lab was notified at 2200 if the result was ready, which was not resulted in EMR. Result not ready per lab; machine is going through a routine maintenance. Notified lab again about value at 2310 and lab stated value cannot be found and they will call as soon as it is ready. Vanc resulted at 2327 in chart as 13.3 value. Vanc was started immediately at 2330.
[2020-03-24] VITALS (26 sets, daily range): BP systolic 101–136; BP diastolic 64–88; PULSE 56–100; RESP 13–25; TEMP 36.7–37.5; O2SAT 93–97
[2020-03-24] MEDS: sodium chlor 0.9% + KCl 20 mEq 20 MEQ/1,000 ML BAG 100 MEQ IV ×3 (01:58→20:06)
[2020-03-24] MEDS: piperacillin-tazobactam 3.375 GM in sodium chloride 0.9% (plus) 50 ML IV ×3 (01:59→17:10)
[2020-03-24 04:09] LABS: Alanine Aminotransferase 32 U/L (0-33); Albumin Level 3.6 g/dL (3.5-5.2); Alkaline Phosphatase 73 IU/L (35-105); Anion Gap 11.8 (5-19); Aspartate Amino Transferase 23 U/L (0-32); Blood Urea Nitrogen 8 mg/dL (6-20); Carbon Dioxide 24 mmol/L (22-29); Chloride 106 mmol/L (98-107); Creatinine Clr Calc Pharmacy 167.9654; Globulin 2.3 g/dL (1.3-4.6); Glomerular Filtration Rate 141.2 mL/min (90-130); Glucose 101 mg/dL (65-115); Osmolality Calculated 282 mOsm/kg (285-295); Potassium 3.8 mmol/L (3.5-5.1); Sodium 138 mmol/L (136-145); Total Bilirubin 0.3 mg/dL (0.15-1.2); Total Protein 5.9 g/dL (6.6-8.7)
--- NOTE | 2020-03-24 04:59 | PC.NURSE ---
Shift Summary Patient rested comfortably last night. At beginning of shift, patient wanted pain medication for neck pain. 01/25 pain. Fentanyl IVP 25 mcg given. Patients pain resolved and is now a 2. Trach is working properly and tolerating well. Able to close suction on her own with minimal assistance and able to expel secretions with no assistance. RT changed patient from 28% FiO2 to room air at approx. 0100. Patient tolerating well with a O2 sat ranging from 94-97%. No further complaints of pain or discomfort at this time.
--- NOTE | 2020-03-24 05:51 | P.PN_ITS ---
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 The patient is doing well from a trach standpoint. There are no c/o. Vitals/I&O/Wt Last Vital Signs Temp 98.3 F 03/24/20 04:00 Pulse 62 03/24/20 05:00 Resp 21 H 03/24/20 05:00 BP 111/81 03/24/20 05:00 Pulse Ox 94 03/24/20 05:00 03/23/20 03/23/20 03/24/20 14:59 22:59 06:59 Intake Total 300 / 300 1300 / 1600 1250 / 2850 Output Total 1700 / 1700 1800 / 3500 Balance 300 / 300 -400 / -100 -550 / -650 Weight last 48 hrs Weight 85.729 kg Weight 86.636 kg Physical Exam Const: COMMON NORMALS: no acute distress and well nourished GENERAL APPEARANCE: comfortable ORIENTATION/CONSCIOUSNESS: Yes Other orientation findings OTHER: The patient is sleeping comfortably. HENMT: COMMON NORMALS: normocephalic, atraumatic, external ears normal and Normal external nose present HEAD & SCALP: normocephalic and atraumatic FACE & SINUS: normal facial exam NOSE: Normal external nose present EXTERNAL EAR: Yes external ears normal MOUTH: lip normal Neck/C-Spine: COMMON NORMALS: no lymphadenopathy and Thyroid normal GENERAL: Yes normal visual inspection, Yes trachea midline and Yes other (The tracheotomy tube is in place and there is no erythema or induration.) THYROID: Thyroid normal Lymph: LYMPHATIC: no lymphadenopathy noted Urinary Catheter Management^: Ceja: Cath Placed During This Visit: yes Reason for Continuing Indwelling Catheter: Accurate Measurement of Urinary Output in Critically Ill Patients Urinary Catheter Date of Insertion: 03/21/20 Urinary Catheter Time of Insertion: 20:30 Data : 03/23/20 10:02 03/24/20 03:10 Micro: Microbiology 03/22/20 09:10 Gram Stain - Final Sputum - Endotracheal Tube Aspirate Sputum Culture - Preliminary A&P Additional A&P Information Impression: 1) POD #3 s/p tracheotomy doing well 2) 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 O/W, continue current trach ca re 2) Path from intraop biopsy was unremarkable. Await the results of the C-ANCA to evaluate for Granulomatosis with Polyangiitis. I will make further recommendations once this is available. Attestations Medical Necessity Statement*: I was consulted to evalate/control the airway. Coding Level of Care Code Acute Concaving Machine Operator for Verito Randle
[2020-03-24] MEDS: famotidine 20 mg/2 mL INJ IVP ×2 (08:00→20:05)
--- NOTE | 2020-03-24 08:31 | PC.NURSE ---
able to shake head yes and no and mouth words, regular unlabored RR RA, lungs CTA, no redness noted to Trach site, scant amount serosanguineous drainage note. able to cough and suction independently to clear airway. denies SOB. regular HR&R, supine 45 degrees call light within reach
[2020-03-24 10:07] LABS: Basophils % 0.1 %; Hematocrit 38.2 % (37.0-47.0); Hemoglobin 12.2 g/dL (11.5-15.3); Lymphocytes # 1.2 10^3/uL (0.8-4.8); Lymphocytes % 6.2 %; Mean Corpuscular HGB Conc 31.9 g/dL (30.0-36.0); Mean Corpuscular Hemoglobin 27.9 pg (28.0-34.0); Mean Corpuscular Volume 87.4 fL (81-99); Mean Platelet Volume 10.2 fL (7.4-10.4); Monocytes # 0.5 10^3/uL (0.2-0.9); Monocytes % 2.8 %; Neutrophils # 17.25 10^3/uL (1.8-7.7); Neutrophils % 90.2 %; Nucleated Red Blood Cells % 0 %; Platelet Count 294 10^3/cmm (130-400); Red Blood Count 4.37 10^6/uL (4.1-5.3); Red Cell Distribution Width 12.3 % (12.1-15.1); White Blood Count 19.1 10^3/uL (4.0-10.0)
--- NOTE | 2020-03-24 10:31 | P.PN_ITS ---
Subjective Subjective: Interval history: Resting quietly in bed, no apparent distress, hemodynamically stable, on RA, had 1800 mL urine output overnight, is POD # 3 s/p emergent tracheostomy. Decreased leukocytosis, otherwise normal labs. Medications: Reviewed: Yes Medication Review Details: Active Medications Generic Name Dose Route Start Last Admin Trade Name Freq PRN Reason Stop Dose Admin Famotidine 20 mg 03/21/20 20:39 03/24/20 08:00 Pepcid Inj IVP 20 mg Q12H YORDY Administration Fentanyl 25 mcg 03/23/20 01:27 03/23/20 20:44 Sublimaze IVP 25 mcg Q4H PRN Administration PAIN Propofol 1,000 mg in 100 m ls @ 0 mls/hr 03/21/20 18:00 03/22/20 20:30 Diprivan IV Infused .Q0M YORDY Titration Protocol Per Protocol Piperacillin Sod/T azobactam 50 mls @ 12.5 mls /hr 03/22/20 02:00 03/24/20 09:33 Sod 3.375 gm/ So dium Chloride IV 12.5 mls/hr Q8H YORDY Administration Protocol As Directed Potassium Chloride /Sodium Chloride 20 meq in 1,000 m ls @ 100 mls/hr 03/21/20 23:00 03/24/20 01:58 Sodium Chlor 0.9 % + Kcl 20 Meq IV 100 mls/hr .Q10H YORDY Administration Vancomycin HCl 1,2 50 mg/ 250 mls @ 250 mls /hr 03/22/20 22:00 03/24/20 05:13 Sodium Chloride IV 250 mls/hr Q8H YORDY Administration Protocol As Directed Lorazepam 0.5 mg 03/23/20 01:28 Ativan IVP Q6H PRN ANXIETY Methylprednisolone Sodium Succinate 60 mg 03/21/20 20:39 03/24/20 08:01 Solu-Medrol IVP 60 mg Q6H YORDY Administration Ondansetron HCl 4 mg 03/21/20 20:39 Zofran IVP Q6H PRN NAUSEA AND VOMITI NG No Known Allergies Allergy (Verified 03/17/20 10:06) Vitals/I&O/Wt Last Vital Signs Temp 99.5 F 03/24/20 07:00 Pulse 77 03/24/20 08:00 Resp 23 H 03/24/20 08:00 BP 135/79 03/24/20 08:00 Pulse Ox 95 03/24/20 08:00 03/23/20 03/24/20 03/24/20 22:59 06:59 14:59 Intake Total 1300 / 1600 1300 / 2900 Output Total 1700 / 1700 1800 / 3500 Balance -400 / -100 -500 / -600 Weight last 48 hrs Weight 85.474 kg Weight 85.729 kg Physical Exam Const: COMMON NORMALS: no acute distress and patient oriented x3 GENERAL APPEARANCE: cooperative and comfortable NUTRITIONAL APPEARANCE: obese ORIENTATION/CONSCIOUSNESS: Yes awake HENMT: COMMON NORMALS: normocephalic, atraumatic, hearing grossly normal bilaterally and moist oral mucous membranes HEAD & SCALP: normocephalic and atraumatic Eye: COMMON NORMALS: Equal, round and reactive pupils present, EOMs intact bilaterally and conjunctivae normal CONJUNCTIVA: Yes conjunctivae normal PUPIL: Yes Equal, round and reactive pupils present Neck/C-Spine: COMMON NORMALS: full ROM GENERAL: Yes tracheostomy present (Trach collar in place, no noted erythema or bleeding currently) Resp: COMMON NORMALS: normal respiratory effort, No retractions, No use of accessory muscles and clear to auscultation bilaterally EFFORT & INSPECTION: Yes able to speak in complete sentences, Yes symmetric chest movement and No tachypneic AUSCULTATION: clear to auscultation bilaterally OTHER: -coarse upper airway sounds Cardio: COMMON NORMALS: regular rate, regular rhythm, S1 normal heart sound present, S2 normal heart sound present and No murmurs present (Cardio) RATE: regular rate RHYTHM: regular rhythm HEART SOUNDS: S1 normal heart sound present and S2 normal heart sound present GI: COMMON NORMALS: Normal to inspection, nondistended, normoactive bowel sounds present, Soft to palpation and non-tender PALPATION: Yes Soft to palpation Extremity: COMMON NORMALS: normal to inspection, full ROM and no clubbing, cyanosis or edema; negative for no pedal edema Neuro: COMMON NORMALS: patient oriented x3, moves all extremities, no focal motor deficits and no sensory deficits noted Psych: COMMON NORMALS: mental status grossly normal, Normal thought process present, cooperative, normal affect and speech normal SPEECH: Yes normal speech THOUGHT PROCESS: Normal thought process present Skin: COMMON NORMALS: no rashes or lesions noted, no jaundice, no petechiae and no mottling GENERAL SKIN EXAM: no rashes or lesions noted Urinary Catheter Management^: Ceja: Cath Placed During This Visit: yes Reason for Continuing Indwelling Catheter: Accurate Measurement of Urinary Output in Critically Ill Patients Urinary Catheter Date of Insertion: 03/21/20 Urinary Catheter Time of Insertion: 20:30 Data : 03/24/20 10:01 03/24/20 03:10 Micro: Microbiology 03/22/20 09:10 Gram Stain - Final Sputum - Endotracheal Tube Aspirate Sputum Culture - Preliminary A&P Assessment and plan (1) Airway obstruction: -Status post emergent tracheostomy following significant difficulty securing airway in ER; POD # 3. Found to have an irregular polypoid swelling of R true vocal cord, biopsied, pathology reported as vocal cord polyp with focal atypia, benign squamous epithelium. Noted left vocal cord paralysis -appreciate consults from Dr. Waddell and Dr. Doran -off sedation, extubated on 03/23, oxygen support and suctioning as needed -trach care -continue IV steroids, dual IV antibiotics -imaging reviewed -had been treated with outpatient antibiotics and steroids -wide differential including Tyree's granulomatosis, malignancy; f/u C-AN[facility], Hep C; HIV negative Status: Acute (2) Vocal cord mass: -as noted above Status: Acute (3) Respiratory failure: -as noted above -COVID-19 test negative; off isolation precautions Status: Resolved Qualifiers: Chronicity: acute Respiratory failure complication: unspecified whether with hypoxia or hypercapnia Qualified Code(s): J96.00 - Acute respiratory failure, unspecified whether with hypoxia or hypercapnia (4) Leukocytosis: -likely reactive due to stress from acute respiratory failure -trending down, likely due to steroids, continue to monitor Status: Acute Qualifiers: Leukocytosis type: unspecified Qualified Code(s): D72.829 - Elevated white blood cell count, unspecified (5) Hypokalemia: Status: Resolved (6) Hyponatremia: -improving Status: Acute Additional A&P Information -Morbid obesity: BMI-32 kg/m2 -NPO until edema improves and able to swallow safely; start on peripheral nutrition, PICC line placement today -GI ppx with Famotidine -DVT ppx with SCDs -Dispo: home -Code status: FULL code -ICU care due to trach, airway obstruction Attestations Medical Necessity Statement*: Patient requires hospitalization for continued management of airway obstruction s/p tracheostomy, on IV antibiotics and IV steroids. Time Spent in Patient Care: 16 - 35 minutes (>than 50% of time spent in counselling and/or direct pt care on unit) . Coding Level of Care Code Acute Card Services Specialist for g Fwd Diagnoses Airway obstruction J98.8 Vocal cord mass J38.3 Respiratory failure J96.00 Chronicity: acute Respiratory failure complication: unspecified whether with hypoxia or hypercapnia Leukocytosis D72.829 Leukocytosis type: unspecified Hypokalemia E87.6 Hyponatremia E87.1
--- NOTE | 2020-03-24 11:15 | XR_ITS ---
WS: [id number] CHEST XRAY TECHNIQUE: Portable chest. CLINICAL INFORMATION: PICC placement COMPARISON: None. FINDINGS: Right PICC line with tip in the proximal SVC in good position. No pneumothorax. Stable tracheostomy. XR/XR chest 1V portable [id number] IMPRESSION: Right PICC line with tip in the proximal SVC.
--- NOTE | 2020-03-24 16:34 | PC.NUTR ---
NUTR TPN RECOMMENDATIONS: Recommend TPN administered via PICC line with goal rate of 83 ml/hr. Suggest starting TPN at half rate and increase by 10 ml Q4H as tolerated until goal rate is met. Fluids per physician. Will review needs and provide additional recommendations on follow up.
--- NOTE | 2020-03-24 18:14 | PC.NUTR ---
NUTR TPN RECOMMENDATIONS: Recommend TPN administered via PICC with goal rate of 50 ml/hr providing 1224 kcal (79%), 51 g PRO (75%)(%NEEDS). Suggest starting TPN at 25 ml/hr and increase by 10 ml Q4H as tolerated until goal rate is met. Fluid per physician.
[2020-03-24 21:05] LABS: HEP C RNA Viral Load Quant <1.18 NOT DETECTED Log IU/mL (NOT DETECTED); HEP C RNA Viral Load Quant <15 NOT DETECTED IU/mL (NOT DETECTED)
[2020-03-24 21:35] LABS: HIV RNA (CPY/ML) <1.30 NOT DETECTED (NOT DETECTED); HIV RNA LOG <20 NOT DETECTED copies/mL (NOT DETECTED)
[2020-03-25] VITALS (26 sets, daily range): BP systolic 104–146; BP diastolic 51–90; PULSE 50–109; RESP 12–27; TEMP 36.8–37.1; O2SAT 94–98
[2020-03-25] MEDS: piperacillin-tazobactam 3.375 GM in sodium chloride 0.9% (plus) 50 ML IV ×3 (02:25→17:39)
[2020-03-25 03:46] LABS: Basophils % 0.1 %; Eosinophils % 0.1 %; Hemoglobin 11.8 g/dL (11.5-15.3); Lymphocytes # 1.4 10^3/uL (0.8-4.8); Lymphocytes % 9.1 %; Mean Corpuscular HGB Conc 31.9 g/dL (30.0-36.0); Mean Corpuscular Hemoglobin 27.8 pg (28.0-34.0); Mean Corpuscular Volume 87.3 fL (81-99); Mean Platelet Volume 10.5 fL (7.4-10.4); Monocytes # 0.8 10^3/uL (0.2-0.9); Monocytes % 4.9 %; Neutrophils # 13.43 10^3/uL (1.8-7.7); Neutrophils % 85.2 %; Nucleated Red Blood Cells % 0 %; Platelet Count 233 10^3/cmm (130-400); Red Blood Count 4.24 10^6/uL (4.1-5.3); Red Cell Distribution Width 12.3 % (12.1-15.1); White Blood Count 15.8 10^3/uL (4.0-10.0)
[2020-03-25 04:11] LABS: Blood Urea Nitrogen 10 mg/dL (6-20); Calcium 8.3 mg/dL (8.5-10.5); Carbon Dioxide 23 mmol/L (22-29); Chloride 106 mmol/L (98-107); Glomerular Filtration Rate 182.7 mL/min (90-130); Glucose 90 mg/dL (65-115); Osmolality Calculated 282 mOsm/kg (285-295); Sodium 138 mmol/L (136-145)
[2020-03-25 04:28] LABS: Anion Gap 13.7 (5-19); Potassium 4.7 mmol/L (3.5-5.1)
--- NOTE | 2020-03-25 08:44 | P.PN_ITS ---
Subjective Subjective: Interval history: Resting quietly in bed, no apparent distress, hemodynamically stable, on RA with humidification for moisture, had 2000 mL urine output overnight, is POD # 4 s/p emergent tracheostomy. Decreased leukocytosis, otherwise normal labs. PICC line in place. No complaints. Medications: Reviewed: Yes Medication Review Details: Active Medications Generic Name Dose Route Start Last Admin Trade Name Freq PRN Reason Stop Dose Admin Famotidine 20 mg 03/21/20 20:39 03/24/20 20:05 Pepcid Inj IVP 20 mg Q12H YORDY Administration Fentanyl 25 mcg 03/23/20 01:27 03/23/20 20:44 Sublimaze IVP 25 mcg Q4H PRN Administration PAIN Piperacillin Sod/T azobactam 50 mls @ 12.5 mls /hr 03/22/20 02:00 03/25/20 06:56 Sod 3.375 gm/ So dium Chloride IV Infused Q8H YORDY Infusion Protocol As Directed Vancomycin HCl 1,2 50 mg/ 250 mls @ 250 mls /hr 03/22/20 22:00 03/25/20 06:56 Sodium Chloride IV Infused Q8H YORDY Infusion Protocol As Directed Lorazepam 0.5 mg 03/23/20 01:28 Ativan IVP Q6H PRN ANXIETY Methylprednisolone Sodium Succinate 60 mg 03/21/20 20:39 03/25/20 02:25 Solu-Medrol IVP 60 mg Q6H YORDY Administration Ondansetron HCl 4 mg 03/21/20 20:39 Zofran IVP Q6H PRN NAUSEA AND VOMITI NG No Known Allergies Allergy (Verified 03/17/20 10:06) Vitals/I&O/Wt Last Vital Signs Temp 98.2 F 03/25/20 05:00 Pulse 61 03/25/20 06:00 Resp 22 H 03/25/20 06:00 BP 132/66 03/25/20 06:00 Pulse Ox 95 03/25/20 06:00 03/24/20 03/25/20 03/25/20 22:59 06:59 14:59 Intake Total 1145 / 2413.333 1300 / 3713.333 Output Total 2150 / 2150 2000 / 4150 Balance -1005 / 263.333 -700 / -436.667 Weight last 48 hrs Weight 85.275 kg Weight 85.474 kg Physical Exam Const: COMMON NORMALS: no acute distress and patient oriented x3 GENERAL APPEARANCE: cooperative and comfortable NUTRITIONAL APPEARANCE: obese ORIENTATION/CONSCIOUSNESS: Yes awake HENMT: COMMON NORMALS: normocephalic, atraumatic, hearing grossly normal bilaterally and moist oral mucous membranes HEAD & SCALP: normocephalic and atraumatic Eye: COMMON NORMALS: Equal, round and reactive pupils present, EOMs intact bilaterally and conjunctivae normal CONJUNCTIVA: Yes conjunctivae normal PUPIL: Yes Equal, round and reactive pupils present Neck/C-Spine: COMMON NORMALS: full ROM GENERAL: Yes tracheostomy present (Trach collar in place, no noted erythema or bleeding currently) Resp: COMMON NORMALS: normal respiratory effort, No retractions, No use of accessory muscles and clear to auscultation bilaterally EFFORT & INSPECTION: Yes able to speak in complete sentences, Yes symmetric chest movement and No tachypneic AUSCULTATION: clear to auscultation bilaterally OTHER: -coarse upper airway sounds Cardio: COMMON NORMALS: regular rate, regular rhythm, S1 normal heart sound present, S2 normal heart sound present and No murmurs present (Cardio) RATE: regular rate RHYTHM: regular rhythm HEART SOUNDS: S1 normal heart sound present and S2 normal heart sound present GI: COMMON NORMALS: Normal to inspection, nondistended, normoactive bowel sounds present, Soft to palpation and non-tender PALPATION: Yes Soft to palpation Extremity: COMMON NORMALS: normal to inspection, full ROM and no clubbing, cyanosis or edema; negative for no pedal edema Neuro: COMMON NORMALS: patient oriented x3, moves all extremities, no focal motor deficits and no sensory deficits noted Psych: COMMON NORMALS: mental status grossly normal, Normal thought process present, cooperative, normal affect and speech normal SPEECH: Yes normal speech THOUGHT PROCESS: Normal thought process present Skin: COMMON NORMALS: no rashes or lesions noted, no jaundice, no petechiae and no mottling GENERAL SKIN EXAM: no rashes or lesions noted Urinary Catheter Management^: Ceja: Cath Placed During This Visit: yes Reason for Continuing Indwelling Catheter: Accurate Measurement of Urinary Output in Critically Ill Patients Urinary Catheter Date of Insertion: 03/21/20 Urinary Catheter Time of Insertion: 20:30 Data : 03/25/20 03:20 03/25/20 03:20 Micro: Microbiology 03/22/20 09:10 Gram Stain - Final Sputum - Endotracheal Tube Aspirate Sputum Culture - Final A&P Assessment and plan (1) Airway obstruction: -Status post emergent tracheostomy following significant difficulty securing airway in ER; POD # 4. Found to have an irregular polypoid swelling of R true vocal cord, biopsied, pathology reported as vocal cord polyp with focal atypia, benign squamous epithelium. Noted left vocal cord paralysis -appreciate consults from Dr. Waddell and Dr. Doran -off sedation, extubated on 03/23, oxygen support and suctioning as needed -trach care -continue IV steroids, dual IV antibiotics -imaging reviewed -had been treated with outpatient antibiotics and steroids -wide differential including Tyree's granulomatosis, malignancy; f/u C-ANCA, Hep C; HIV negative -ST evaluation to evaluate swallowing appreciated; per discussion with alisia Hi only for sips and chips Status: Acute (2) Vocal cord mass: -as noted above Status: Acute (3) Respiratory failure: -as noted above -COVID-19 test negative; off isolation precautions Status: Resolved Qualifiers: Chronicity: acute Respiratory failure complication: unspecified whether with hypoxia or hypercapnia Qualified Code(s): J96.00 - Acute respiratory failure, unspecified whether with hypoxia or hypercapnia (4) Leukocytosis: -likely reactive due to stress from acute respiratory failure -trending down, likely due to steroids, continue to monitor Status: Acute Qualifiers: Leukocytosis type: unspecified Qualified Code(s): D72.829 - Elevated white blood cell count, unspecified (5) Hypokalemia: Status: Resolved (6) Hyponatremia: -improving Status: Acute Additional A&P Information -Morbid obesity: BMI-32 kg/m2 -NPO until edema improves and able to swallow safely; PICC line placed 03/24 in case of need for peripheral nutrition; sips and chips only for now -d/c IVF -GI ppx with Famotidine -DVT ppx with SCDs -d/c Ceja and encourage out of bed activity -Dispo: home -Code status: FULL code -ICU care due to trach, airway obstruction Attestations Medical Necessity Statement*: Patient requires hospitalization for continued management of acute airway obstruction s/p tracheostomy, on IV steroids and antibiotics. Time Spent in Patient Care: 16 - 35 minutes (>than 50% of time spent in cou nselling and/or direct pt care on unit) . Coding Level of Care Code Acute Safe Deposit Box Rental Clerk for Chg Fwd Exam Comprehensive Diagnoses Airway obstruction J98.8 Vocal cord mass J38.3 Respiratory failure J96.00 Chronicity: acute Respiratory failure complication: unspecified whether with hypoxia or hypercapnia Leukocytosis D72.829 Leukocytosis type: unspecified Hypokalemia E87.6 Hyponatremia E87.1
--- NOTE | 2020-03-25 09:02 | PC.NURSE ---
pt. belongings in, including a wallet. taken to room.
[2020-03-25] MEDS: famotidine 20 mg/2 mL INJ IVP ×2 (09:22→21:07)
--- NOTE | 2020-03-25 11:03 | PC.NURSE ---
on 1st. assessment noted left forearm iv. piid. picc to right
--- NOTE | 2020-03-25 13:23 | PC.NURSE ---
resting quietly in bed. denies any needs. tolerating ice chips w/o difficulty
--- NOTE | 2020-03-25 14:25 | PC.NURSE ---
dr. raman in
--- NOTE | 2020-03-25 14:32 | P.PN_ITS ---
Subjective Subjective: Interval history: 35 yo wf who is POD #4 s/p emergent tracheotomy for true vocal cord paralysis with airway obstruction. The patient is doing well from the stanpoint of her trach. There are no other c/o. Vitals/I&O/Wt Last Vital Signs Temp 98.2 F 03/25/20 05:00 Pulse 54 L 03/25/20 14:00 Resp 20 H 03/25/20 14:00 BP 112/71 03/25/20 14:00 Pulse Ox 94 03/25/20 14:00 03/24/20 03/25/20 03/25/20 22:59 06:59 14:59 Intake Total 1145 / 2413.333 1300 / 3713.333 0 / 0 Output Total 2150 / 2150 2000 / 4150 950 / 950 Balance -1005 / 263.333 -700 / -436.667 -950 / -950 Weight last 48 hrs Weight 85.275 kg Weight 85.474 kg Physical Exam Const: COMMON NORMALS: no acute distress and patient oriented x3 HENMT: COMMON NORMALS: normocephalic, external ears normal and Normal external nose present HEAD & SCALP: normocephalic FACE & SINUS: normal facial exam and face symmetric NOSE: Normal external nose present EXTERNAL EAR: Yes external ears normal Eye: COMMON NORMALS: EOMs intact bilaterally and conjunctivae normal CONJUNCTIVA: Yes conjunctivae normal Neck/C-Spine: COMMON NORMALS: full ROM, no lymphadenopathy and supple GENERAL: Yes trachea midline and Yes other (The tracheostomy tube is in place and without erythema or induration.) Neuro: COMMON NORMALS: patient oriented x3 Urinary Catheter Management^: Ceja: Cath Placed During This Visit: yes, but has since been removed by the nurse Reason for Continuing Indwelling Catheter: Does Not Meet Criteria Urinary Catheter Date of Insertion: 03/21/20 Urinary Catheter Time of Insertion: 20:30 Date Urinary Catheter Removed: 03/25/20 Time Urinary Catheter Discontinued: 10:10 Data : 03/25/20 03:20 03/25/20 03:20 Micro: Microbiology 03/22/20 09:10 Gram Stain - Final Sputum - Endotracheal Tube Aspirate Sputum Culture - Final A&P Additional A&P Information Impression: 1) POD #4 s/p Emergent Tracheotomy for true vocal crod paralysis and airway obstruction doing well from this standpoint 2) Left true vocal cord paralysis with right true vocal cord paresis - DDx is wide and discussed previously. Plan: 1) Will change trach about POD #7 2) Await C-ANCA results. I will make further results once this becomes available. Attestations Medical Necessity Statement*: I was consulted to manage/secure the airway Coding Level of Care Code Acute Zinc Miner Blasting for Verito Randle
--- NOTE | 2020-03-25 16:42 | PC.NURSE ---
AMBULATED TO BATHROOM. TOL. SERNA
[2020-03-25] MEDS: fentaNYL 50 mcg/mL INJ 2mL 25 MCG IVP (17:29)
[2020-03-26] VITALS (20 sets, daily range): BP systolic 98–134; BP diastolic 54–86; PULSE 52–110; RESP 12–24; TEMP 36.3–36.6; O2SAT 94–97
[2020-03-26] MEDS: piperacillin-tazobactam 3.375 GM in sodium chloride 0.9% (plus) 50 ML IV ×3 (01:52→18:33)
[2020-03-26 03:59] LABS: Basophils % 0.1 %; Hematocrit 41.3 % (37.0-47.0); Hemoglobin 13.6 g/dL (11.5-15.3); Lymphocytes % 6.5 %; Mean Corpuscular HGB Conc 32.9 g/dL (30.0-36.0); Mean Corpuscular Hemoglobin 28.8 pg (28.0-34.0); Mean Corpuscular Volume 87.5 fL (81-99); Mean Platelet Volume 10.5 fL (7.4-10.4); Monocytes # 0.6 10^3/uL (0.2-0.9); Monocytes % 3.7 %; Neutrophils % 89.1 %; Nucleated Red Blood Cells % 0 %; Platelet Count 285 10^3/cmm (130-400); Red Blood Count 4.72 10^6/uL (4.1-5.3); Red Cell Distribution Width 12.1 % (12.1-15.1); White Blood Count 15.3 10^3/uL (4.0-10.0)
--- NOTE | 2020-03-26 07:53 | PM.PN ---
Subjective Subjective: Interval history: POD # 5 s/p emergent tracheostomy, Ceja catheter removed. Hemodynamically stable, afebrile, on sips and chips. Resting quietly in bed, no complaints, has been ambulatory and voiding independently without difficulty. Did much better with re-evaluation by speech therapy, can be advanced to mechanical soft diet with thin liquids. Medications: Reviewed: Yes Medication Review Details: Active Medications Generic Name Dose Route Start Last Admin Trade Name Freq PRN Reason Stop Dose Admin Famotidine 20 mg 03/21/20 20:39 03/25/20 21:07 Pepcid Inj IVP 20 mg Q12H YORDY Administration Fentanyl 25 mcg 03/23/20 01:27 03/25/20 17:29 Sublimaze IVP 25 mcg Q4H PRN Administration PAIN Piperacillin Sod/T azobactam 50 mls @ 12.5 mls /hr 03/22/20 02:00 03/26/20 01:52 Sod 3.375 gm/ So dium Chloride IV 12.5 mls/hr Q8H YORDY Administration Protocol As Directed Vancomycin HCl 1,2 50 mg/ 250 mls @ 250 mls /hr 03/22/20 22:00 03/26/20 05:02 Sodium Chloride IV 250 mls/hr Q8H YORDY Administration Protocol As Directed Lorazepam 0.5 mg 03/23/20 01:28 Ativan IVP Q6H PRN ANXIETY Methylprednisolone Sodium Succinate 60 mg 03/21/20 20:39 03/26/20 01:52 Solu-Medrol IVP 60 mg Q6H YORDY Administration Ondansetron HCl 4 mg 03/21/20 20:39 Zofran IVP Q6H PRN NAUSEA AND VOMITI NG No Known Allergies Allergy (Verified 03/17/20 10:06) Vitals/I&O/Wt Last Vital Signs Temp 98.3 F 03/25/20 20:00 Pulse 54 L 03/26/20 06:00 Resp 20 H 03/26/20 06:00 BP 106/57 03/26/20 06:00 Pulse Ox 94 03/26/20 06:00 03/25/20 03/26/20 03/26/20 22:59 06:59 14:59 Intake Total 600 / 600 Balance 600 / -350 Weight last 48 hrs Weight 85.275 kg Physical Exam Const: COMMON NORMALS: no acute distress and patient oriented x3 GENERAL APPEARANCE: cooperative and comfortable NUTRITIONAL APPEARANCE: obese ORIENTATION/CONSCIOUSNESS: Yes awake HENMT: COMMON NORMALS: normocephalic, atraumatic, hearing grossly normal bilaterally and moist oral mucous membranes HEAD & SCALP: normocephalic and atraumatic Eye: COMMON NORMALS: Equal, round and reactive pupils present, EOMs intact bilaterally and conjunctivae normal CONJUNCTIVA: Yes conjunctivae normal PUPIL: Yes Equal, round and reactive pupils present Neck/C-Spine: COMMON NORMALS: full ROM GENERAL: Yes tracheostomy present (Trach collar in place, no noted erythema or bleeding currently) Resp: COMMON NORMALS: normal respiratory effort, No retractions, No use of accessory muscles and clear to auscultation bilaterally EFFORT & INSPECTION: Yes able to speak in complete sentences, Yes symmetric chest movement and No tachypneic AUSCULTATION: clear to auscultation bilaterally OTHER: -Able to vocalize better with occlusion of trach Cardio: COMMON NORMALS: regular rate, regular rhythm, S1 normal heart sound present, S2 normal heart sound present and No murmurs present (Cardio) RATE: regular rate RHYTHM: regular rhythm HEART SOUNDS: S1 normal heart sound present and S2 normal heart sound present GI: COMMON NORMALS: Normal to inspection, nondistended, normoactive bowel sounds present, Soft to palpation and non-tender PALPATION: Yes Soft to palpation Extremity: COMMON NORMALS: normal to inspection, full ROM and no clubbing, cyanosis or edema; negative for no pedal edema Neuro: COMMON NORMALS: patient oriented x3, moves all extremities, no focal motor deficits and no sensory deficits noted Psych: COMMON NORMALS: mental status grossly normal, Normal thought process present, cooperative, normal affect and speech normal SPEECH: Yes normal speech THOUGHT PROCESS: Normal thought process present Skin: COMMON NORMALS: no rashes or lesions noted, no jaundice, no petechiae and no mottling GENERAL SKIN EXAM: no rashes or lesions noted Urinary Catheter Management^: Ceja: Cath Placed During This Visit: yes, but has since been removed by the nurse Reason for Continuing Indwelling Catheter: Other Urinary Catheter Date of Insertion: 03/21/20 Urinary Catheter Time of Insertion: 20:30 Date Urinary Catheter Removed: 03/25/20 Time Urinary Catheter Discontinued: 10:10 Data : 03/26/20 03:32 03/25/20 03:20 A&P Assessment and plan (1) Airway obstruction: -Status post emergent tracheostomy following significant difficulty securing airway in ER; POD # 5. Found to have an irregular polypoid swelling of R true vocal cord, biopsied, pathology reported as vocal cord polyp with focal atypia, benign squamous epithelium. Noted left vocal cord paralysis -appreciate consults from Dr. Waddell and Dr. Doran -off sedation, extubated on 03/23, oxygen support and suctioning as needed -trach care -continue IV steroids, dual IV antibiotics -imaging reviewed -had been treated with outpatient antibiotics and steroids -wide differential including Tyree's granulomatosis, malignancy; f/u C-ANCA, Hep C; HIV negative -ST evaluation to evaluate swallowing appreciated; per discussion with [place], ok only for sips and chips. Re-evaluation today shows significant improvement, can be advanced to mechanical soft diet with thin liquids Status: Acute (2) Vocal cord mass: -as noted above Status: Acute (3) Respiratory failure: -as noted above -COVID-19 test negative; off isolation precautions Status: Resolved Qualifiers: Chronicity: acute Respiratory failure complication: unspecified whether with hypoxia or hypercapnia Qualified Code(s): J96.00 - Acute respiratory failure, unspecified whether with hypoxia or hypercapnia (4) Leukocytosis: -likely reactive due to stress from acute respiratory failure -trending down, likely due to steroids, continue to monitor Status: Acute Qualifiers: Leukocytosis type: unspecified Qualified Code(s): D72.829 - Elevated white blood cell count, unspecified (5) Hypokalemia: Status: Resolved (6) Hyponatremia: -resolved Status: Resolved Additional A&P Information -Morbid obesity: BMI-32 kg/m2 -advance to mechanical soft diet per ST recommendations -d/c IVF -GI ppx with Famotidine -DVT ppx with SCDs -Ceja discontinued and able to void independently without difficulty; ambulatory -Dispo: home -Code status: FULL code -ICU care due to trach, airway obstruction Attestations Medical Necessity Statement*: Patient requires hospitalization for continued management of airway obstruction s/p tracheostomy, on IV antibiotics and steroids. Time Spent in Patient Care: 16 - 35 minutes (>than 50% of time spent in counselling and/or direct pt care on unit). Coding Level of Care Code Acute Chief Accounting Officer for Chg Fwd Exam Comprehensive Diagnoses Airway obstruction J98.8 Vocal cord mass J38.3 Respiratory failure J96.00 Chronicity: acute Respiratory failure complication: unspecified whether with hypoxia or hypercapnia Leukocytosis D72.829 Leukocytosis type: unspecified Hypokalemia E87.6 Hyponatremia E87.1
[2020-03-26] MEDS: famotidine 20 mg/2 mL INJ IVP ×2 (08:55→21:02)
--- NOTE | 2020-03-26 15:30 | P.PN_ITS ---
Subjective Subjective: Interval history: 35 yo wf who is POD #5 s/p emergent tracheotomy who is doing well. The patient is talking with the trach in place. She reports minimal pain, and is o/w without c/o. Vitals/I&O/Wt Last Vital Signs Temp 97.3 F L 03/26/20 10:00 Pulse 83 03/26/20 14:00 Resp 22 H 03/26/20 14:00 BP 134/86 03/26/20 14:00 Pulse Ox 96 03/26/20 14:00 03/26/20 03/26/20 03/26/20 06:59 14:59 22:59 Intake Total 300 / 900 Balance 300 / -50 Weight last 48 hrs Weight 85.275 kg Physical Exam Const: COMMON NORMALS: no acute distress, patient oriented x3, healthy appearing and well nourished GENERAL APPEARANCE: cooperative and well developed HENMT: COMMON NORMALS: normocephalic, hearing grossly normal bilaterally, external ears normal and Normal external nose present HEAD & SCALP: normocephalic NOSE: Normal external nose present EXTERNAL EAR: Yes external ears normal Eye: COMMON NORMALS: EOMs intact bilaterally and conjunctivae normal CONJUNCTIVA: Yes conjunctivae normal Neck/C-Spine: COMMON NORMALS: full ROM, no lymphadenopathy and Thyroid normal GENERAL: Yes trachea midline and Yes other (The trach is in place without erythema or discharge. ) THYROID: Thyroid normal Neuro: COMMON NORMALS: patient oriented x3 Urinary Catheter Management^: Ceja: Cath Placed During This Visit: yes, but has since been removed by the nurse Reason for Continuing Indwelling Catheter: Other Urinary Catheter Date of Insertion: 03/21/20 Urinary Catheter Time of Insertion: 20:30 Date Urinary Catheter Removed: 03/25/20 Time Urinary Catheter Discontinued: 10:10 Data : 03/26/20 03:32 03/25/20 03:20 Micro: Microbiology 03/21/20 14:15 Blood Culture - Final Blood NO GROWTH AFTER 5 DAYS 03/21/20 14:20 Blood Culture - Final Blood NO GROWTH AFTER 5 DAYS A&P Additional A&P Information Impression: 1) POD #5 s/p tracheotomy doing well from this standpoint 2) Left true vocal cord paralysis, right true vocal cord paresis Plan: 1) Continue current care. Plan first trach change on POD #7. The patient will need discharge planning/social work consult with humidified air, home suction unit, and daily home health visits. 2) Await C-ANCA results. Will consider other diagnostic options once this is available. I will perform a f/u laryngoscopy prior to discharge. Attestations Medical Necessity Statement*: I was consulted to manage the patient's airway. Coding Level of Care Code Acute Clinical Documentation Specialist for Verito Randle
[2020-03-26] MEDS: fentaNYL 50 mcg/mL INJ 2mL 25 MCG IVP (18:33)
[2020-03-26 21:20] LABS: Vancomycin Trough 17.9 ug/mL (10-15)
[2020-03-27] VITALS (24 sets, daily range): BP systolic 96–134; BP diastolic 59–88; PULSE 54–90; RESP 12–23; TEMP 36.6–36.7; O2SAT 93–97
[2020-03-27] MEDS: piperacillin-tazobactam 3.375 GM in sodium chloride 0.9% (plus) 50 ML IV ×3 (02:38→17:31)
--- NOTE | 2020-03-27 05:43 | P.PN_ITS ---
Subjective Subjective: Interval history: 35 yo wf who is POD #6 s/p emergent tracheotomy for bilateral true vocal cord paralysis/paresis with airway obstruction. The patient reports that she is doing well from an an airway/trach standpoint. She has no c/o. Vitals/I&O/Wt Last Vital Signs Temp 98.1 F 03/27/20 04:00 Pulse 88 03/27/20 05:00 Resp 14 03/27/20 05:00 BP 104/59 03/27/20 05:00 Pulse Ox 96 03/27/20 05:00 03/26/20 03/26/20 03/27/20 14:59 22:59 06:59 Intake Total 50 / 50 1020 / 1070 240 / 1310 Balance 50 / 50 1020 / 1070 240 / 1310 Weight last 48 hrs Weight 85.275 kg Physical Exam Const: COMMON NORMALS: no acute distress, patient oriented x3, healthy appearing and well nourished GENERAL APPEARANCE: cooperative and well developed HENMT: COMMON NORMALS: normocephalic, hearing grossly normal bilaterally, external ears normal and Normal external nose present HEAD & SCALP: normocephalic FACE & SINUS: normal facial exam and face symmetric NOSE: Normal external nose present EXTERNAL EAR: Yes external ears normal Eye: COMMON NORMALS: EOMs intact bilaterally and conjunctivae normal CONJUNCTIVA: Yes conjunctivae normal SCLERA: sclerae normal Neck/C-Spine: COMMON NORMALS: full ROM, no lymphadenopathy, supple and Thyroid normal GENERAL: Yes other (The trach site is clean, dry, and without erythema or induration.) THYROID: Thyroid normal Neuro: COMMON NORMALS: patient oriented x3 Urinary Catheter Management^: Ceja: Cath Placed During This Visit: yes, but has since been removed by the nurse Reason for Continuing Indwelling Catheter: Other Urinary Catheter Date of Insertion: 03/21/20 Urinary Catheter Time of Insertion: 20:30 Date Urinary Catheter Removed: 03/25/20 Time Urinary Catheter Discontinued: 10:10 Data : 03/26/20 03:32 03/25/20 03:20 Micro: Microbiology 03/21/20 14:15 Blood Culture - Final Blood NO GROWTH AFTER 5 DAYS 03/21/20 14:20 Blood Culture - Final Blood NO GROWTH AFTER 5 DAYS A&P Additional A&P Information Impression: 1) POD #6 s/p Emergent Tracheotomy doing well from this standpoint 2) Bilateral true vocal cord paralysis/paresis Plan: 1) First trach change tomorrow. The patient will need social work consult for home health care/trach care for 2 weeks, home suction unit, home trach humidi fication. 2) Await C-ANCA results. Will persue w/u after discharge. Attestations Medical Necessity Statement*: I was consulted for airway management. Coding Level of Care Code Acute Continuous Vulcanizing Machine Operator for Verito Randle
[2020-03-27] MEDS: famotidine 20 mg/2 mL INJ IVP ×2 (08:04→20:58)
--- NOTE | 2020-03-27 08:14 | PM.PN ---
Subjective Subjective: Interval history: POD # 6 s/p tracheostomy, remains on IV steroids, IV vancomycin and Zosyn. Vanco trough today 17.9. Hemodynamically stable with some intermittent bradycardia with heart rates in the 50s though asymptomatic, afebrile, remains on humidified air. Vocalization continues to improve with occlusion of trach. Explained that she will be having her first trach change tomorrow by Dr. Waddell. Medications: Reviewed: Yes Medication Review Details: Active Medications Generic Name Dose Route Start Last Admin Trade Name Freq PRN Reason Stop Dose Admin Famotidine 20 mg 03/21/20 20:39 03/27/20 08:04 Pepcid Inj IVP 20 mg Q12H YORDY Administration Fentanyl 25 mcg 03/23/20 01:27 03/26/20 18:33 Sublimaze IVP 25 mcg Q4H PRN Administration PAIN Piperacillin Sod/T azobactam 50 mls @ 12.5 mls /hr 03/22/20 02:00 03/27/20 08:04 Sod 3.375 gm/ So dium Chloride IV Infused Q8H YORDY Infusion Protocol As Directed Vancomycin HCl 1,2 50 mg/ 250 mls @ 250 mls /hr 03/22/20 22:00 03/27/20 06:07 Sodium Chloride IV 250 mls/hr Q8H YORDY Administration Protocol As Directed Lorazepam 0.5 mg 03/23/20 01:28 Ativan IVP Q6H PRN ANXIETY Methylprednisolone Sodium Succinate 60 mg 03/21/20 20:39 03/27/20 08:03 Solu-Medrol IVP 60 mg Q6H YORDY Administration Ondansetron HCl 4 mg 03/21/20 20:39 Zofran IVP Q6H PRN NAUSEA AND VOMITI NG No Known Allergies Allergy (Verified 03/17/20 10:06) Vitals/I&O/Wt Last Vital Signs Temp 98.1 F 03/27/20 04:00 Pulse 59 L 03/27/20 07:35 Resp 18 03/27/20 06:00 BP 130/75 03/27/20 06:00 Pulse Ox 97 03/27/20 07:35 03/26/20 03/27/20 03/27/20 22:59 06:59 14:59 Intake Total 1270 / 1320 240 / 1560 50 / 50 Balance 1270 / 1320 240 / 1560 50 / 50 Weight last 48 hrs Weight 85.275 kg Physical Exam Const: COMMON NORMALS: no acute distress and patient oriented x3 GENERAL APPEARANCE: cooperative and comfortable NUTRITIONAL APPEARANCE: obese ORIENTATION/CONSCIOUSNESS: Yes awake HENMT: COMMON NORMALS: normocephalic, atraumatic, hearing grossly normal bilaterally and moist oral mucous membranes HEAD & SCALP: normocephalic and atraumatic Eye: COMMON NORMALS: Equal, round and reactive pupils present, EOMs intact bilaterally and conjunctivae normal CONJUNCTIVA: Yes conjunctivae normal PUPIL: Yes Equal, round and reactive pupils present Neck/C-Spine: COMMON NORMALS: full ROM GENERAL: Yes tracheostomy present (Trach collar in place, no noted erythema or bleeding currently) Resp: COMMON NORMALS: normal respiratory effort, No retractions, No use of accessory muscles and clear to auscultation bilaterally EFFORT & INSPECTION: Yes able to speak in complete sentences, Yes symmetric chest movement and No tachypneic AUSCULTATION: clear to auscultation bilaterally OTHER: -Able to vocalize better with occlusion of trach Cardio: COMMON NORMALS: regular rate, regular rhythm, S1 normal heart sound present, S2 normal heart sound present and No murmurs present (Cardio) RATE: regular rate RHYTHM: regular rhythm HEART SOUNDS: S1 normal heart sound present and S2 normal heart sound present GI: COMMON NORMALS: Normal to inspection, nondistended, normoactive bowel sounds present, Soft to palpation and non-tender PALPATION: Yes Soft to palpation Extremity: COMMON NORMALS: normal to inspection, full ROM and no clubbing, cyanosis or edema; negative for no pedal edema Neuro: COMMON NORMALS: patient oriented x3, moves all extremities, no focal motor deficits and no sensory deficits noted Psych: COMMON NORMALS: mental status grossly normal, Normal thought process present, cooperative, normal affect and speech normal SPEECH: Yes normal speech THOUGHT PROCESS: Normal thought process present Skin: COMMON NORMALS: no rashes or lesions noted, no jaundice, no petechiae and no mottling GENERAL SKIN EXAM: no rashes or lesions noted Urinary Catheter Management^: Ceja: Cath Placed During This Visit: yes, but has since been removed by the nurse Reason for Continuing Indwelling Catheter: Other Urinary Catheter Date of Insertion: 03/21/20 Urinary Catheter Time of Insertion: 20:30 Date Urinary Catheter Removed: 03/25/20 Time Urinary Catheter Discontinued: 10:10 Data : 03/26/20 03:32 03/25/20 03:20 Micro: Microbiology 03/21/20 14:15 Blood Culture - Final Blood NO GROWTH AFTER 5 DAYS 03/21/20 14:20 Blood Culture - Final Blood NO GROWTH AFTER 5 DAYS A&P Assessment and plan (1) Airway obstruction: -Status post emergent tracheostomy following significant difficulty securing airway in ER; POD # 6. Found to have an irregular polypoid swelling of R true vocal cord, biopsied, pathology reported as vocal cord polyp with focal atypia, benign squamous epithelium. Noted left vocal cord paralysis -first trach change tomorrow by Dr. Waddell; keep NPO after midnight -appreciate consults from Dr. Waddell and Dr. Doran -off sedation, extubated on 03/23, oxygen support and suctioning as needed -trach care -continue IV steroids, dual IV antibiotics -imaging reviewed -had been treated with outpatient antibiotics and steroids -wide differential including Tyree's granulomatosis, malignancy; f/u [facility], Hep C and HIV negative -ST evaluation appreciated; mechanical soft diet with thin liquids Status: Acute (2) Vocal cord mass: -as noted above Status: Acute (3) Respiratory failure: -as noted above -COVID-19 test negative; off isolation precautions Status: Resolved Qualifiers: Chronicity: acute Respiratory failure complication: unspecified whether with hypoxia or hypercapnia Qualified Code(s): J96.00 - Acute respiratory failure, unspecified whether with hypoxia or hypercapnia (4) Leukocytosis: -likely reactive due to stress from acute respiratory failure -trending down, likely due to steroids, continue to monitor Status: Acute Qualifiers: Leukocytosis type: unspecified Qualified Code(s): D72.829 - Elevated white blood cell count, unspecified (5) Hypokalemia: Status: Resolved (6) Hyponatremia: -resolved Status: Resolved Additional A&P Information -Morbid obesity: BMI-32 kg/m2 -on mechanical soft diet per ST recommendations; NPO after midnight -off IVF; good oral hydration -GI ppx with Famotidine -DVT ppx with SCDs -Ceja discontinued and able to void independently without difficulty; ambulatory -Dispo: home with services; trach supplies ordered -Code status: FULL code -ICU care due to trach, airway obstruction Attestations Medical Necessity Statement*: Patient requires hospitalization for continued management of acute airway obstruction s/p tracheostomy pending first trach change tomorrow, on IV steroids and antibiotics. Time Spent in Patient Care: 16 - 35 minutes (>than 50% of time spent in counselling and/or direct pt care on unit). Coding Level of Care Code Acute Player Manager for g Fwd Exam Comprehensive Diagnoses Airway obstruction J98.8 Vocal cord mass J38.3 Respiratory failure J96.00 Chronicity: acute Respiratory failure complication: unspecified whether with hypoxia or hypercapnia Leukocytosis D72.829 Leukocytosis type: unspecified Hypokalemia E87.6 Hyponatremia E87.1
--- NOTE | 2020-03-27 09:46 | PC.NURSE ---
Zosyn infusion entry @ 09:11 on 03/27/20 is an erroneous entry; unable to delete, so please disregard.
--- NOTE | 2020-03-27 10:10 | PC.CHAP ---
Pastoral Care Encounter/Spiritual Assessment Type of Contact [] Declined clinical staff pharmacist visit [] Patient/Family/Request visit [] Outpatient visit [] Follow-up visit [] Physician referral [] Code/Alert [x] Routine visit [] Staff referral [] Actively dying [] Patient sleeping [] Family support [] [] Out of room [] Palliative care [] [] Receiving care in room [] Pre-surgical visit [] Trauma [] Long length of stay [] ICU visit [] Other: Relational/Emotional Strength [] Patient feels connected with others/family/visitors/staff [] Distress [] Loneliness/isolation [] Abandonment Spirituality of Patient [] Person of Mary [] Attends [facility] of their Mary [] Believes in Prayer [] Reads Bible or Jainism materials [] There are Spiritual issues to be addressed Job Analysis Manager Interventions [] Prayer [] Active listening [] Non-anxious presence [] Spiritual/emotional support [] Crisis/trauma care [] Spiritual counseling [] Bereavement support [] Provided bereavement packet [] Provided Bible/devotional materials [] Provided toy/stuffed animal, coloring book to patient or family member [] Provided Communion [] Anointing/[place] [] Salvation [x] Completed spiritual assessment [] Other: Impact on Illness or Injury [] Angry [] Fearful [] Anxious [] Often cries [] Exhaustion [] Unable to work [] Unable to attend mosque [] Unable to walk/stand [] Unable to read [] Unable to drive [] Unable to eat/drink [] Unable to sleep [] Unable to be with family [] Patient intubated [] Other: Summary Patient is wiccan and did not require a clinical staff pharmacist. Time spent with patient
[2020-03-27] MEDS: HYDROcodone-acetaminophen 5-325 mg Tablet 1 TAB PO (17:31)
[2020-03-28] VITALS (27 sets, daily range): BP systolic 79–127; BP diastolic 47–92; PULSE 51–135; RESP 13–25; TEMP 35.5–37.1; O2SAT 94–100
[2020-03-28] MEDS: piperacillin-tazobactam 3.375 GM in sodium chloride 0.9% (plus) 50 ML IV ×3 (02:05→18:03)
[2020-03-28] MEDS: fentaNYL 50 mcg/mL INJ 2mL 25 MCG IVP (03:36)
--- NOTE | 2020-03-28 08:26 | PM.PN ---
Subjective Subjective: Interval history: Plan for first trach change and laryngoscopy today. Hemodynamically stable, afebrile. POD # 7 s/p tracheostomy. Sitting up in bed, reports feeling well, quite eager to go home if possible. Working on trach supplies and arranging home health services. Medications: Reviewed: Yes Medication Review Details: Active Medications Generic Name Dose Route Start Last Admin Trade Name Freq PRN Reason Stop Dose Admin Hydrocodone Bitart /Acetaminophen 1 tab 03/27/20 17:09 03/27/20 17:31 [place] 5-325 Mg PO 1 tab Q4H PRN Administration MODERATE PAIN Famotidine 20 mg 03/21/20 20:39 03/27/20 20:58 Pepcid Inj IVP 20 mg Q12H YORDY Administration Fentanyl 25 mcg 03/23/20 01:27 03/28/20 03:36 Sublimaze IVP 25 mcg Q4H PRN Administration PAIN Piperacillin Sod/T azobactam 50 mls @ 12.5 mls /hr 03/22/20 02:00 03/28/20 02:05 Sod 3.375 gm/ So dium Chloride IV 12.5 mls/hr Q8H YORDY Administration Protocol As Directed Vancomycin HCl 1,2 50 mg/ 250 mls @ 250 mls /hr 03/22/20 22:00 03/28/20 07:56 Sodium Chloride IV Infused Q8H YORDY Infusion Protocol As Directed Lorazepam 0.5 mg 03/23/20 01:28 Ativan IVP Q6H PRN ANXIETY Methylprednisolone Sodium Succinate 60 mg 03/21/20 20:39 03/28/20 02:05 Solu-Medrol IVP 60 mg Q6H YORDY Administration Ondansetron HCl 4 mg 03/21/20 20:39 Zofran IVP Q6H PRN NAUSEA AND VOMITI NG No Known Allergies Allergy (Verified 03/17/20 10:06) Vitals/I&O/Wt Last Vital Signs Temp 97.8 F 03/27/20 19:00 Pulse 51 L 03/28/20 07:59 Resp 16 03/28/20 07:59 BP 97/55 03/28/20 07:59 Pulse Ox 96 03/28/20 07:59 03/27/20 03/28/20 03/28/20 22:59 06:59 14:59 Intake Total 550 / 1300 250 / 1550 250 / 250 Balance 550 / 1300 250 / 1550 250 / 250 Weight last 48 hrs Weight 85.02 kg Weight 85.275 kg Physical Exam Const: COMMON NORMALS: no acute distress and patient oriented x3 GENERAL APPEARANCE: cooperative and comfortable NUTRITIONAL APPEARANCE: obese ORIENTATION/CONSCIOUSNESS: Yes awake HENMT: COMMON NORMALS: normocephalic, atraumatic, hearing grossly normal bilaterally and moist oral mucous membranes HEAD & SCALP: normocephalic and atraumatic Eye: COMMON NORMALS: Equal, round and reactive pupils present, EOMs intact bilaterally and conjunctivae normal CONJUNCTIVA: Yes conjunctivae normal PUPIL: Yes Equal, round and reactive pupils present Neck/C-Spine: COMMON NORMALS: full ROM GENERAL: Yes tracheostomy present (Trach collar in place, no noted erythema or bleeding currently) Resp: COMMON NORMALS: normal respiratory effort, No retractions, No use of accessory muscles and clear to auscultation bilaterally EFFORT & INSPECTION: Yes able to speak in complete sentences, Yes symmetric chest movement and No tachypneic AUSCULTATION: clear to auscultation bilaterally OTHER: -Able to vocalize better with occlusion of trach Cardio: COMMON NORMALS: regular rate, regular rhythm, S1 normal heart sound present, S2 normal heart sound present and No murmurs present (Cardio) RATE: regular rate RHYTHM: regular rhythm HEART SOUNDS: S1 normal heart sound present and S2 normal heart sound present GI: COMMON NORMALS: Normal to inspection, nondistended, normoactive bowel sounds present, Soft to palpation and non-tender PALPATION: Yes Soft to palpation Extremity: COMMON NORMALS: normal to inspection, full ROM and no clubbing, cyanosis or edema; negative for no pedal edema Neuro: COMMON NORMALS: patient oriented x3, moves all extremities, no focal motor deficits and no sensory deficits noted Psych: COMMON NORMALS: mental status grossly normal, Normal thought process present, cooperative, normal affect and speech normal SPEECH: Yes normal speech THOUGHT PROCESS: Normal thought process present Skin: COMMON NORMALS: no rashes or lesions noted, no jaundice, no petechiae and no mottling GENERAL SKIN EXAM: no rashes or lesions noted Urinary Catheter Management^: Ceja: Cath Placed During This Visit: yes, but has since been removed by the nurse Reason for Continuing Indwelling Catheter: Other Urinary Catheter Date of Insertion: 03/21/20 Urinary Catheter Time of Insertion: 20:30 Date Urinary Catheter Removed: 03/25/20 Time Urinary Catheter Discontinued: 10:10 Data : 03/26/20 03:32 03/25/20 03:20 A&P Assessment and plan (1) Airway obstruction: -Status post emergent tracheostomy following significant difficulty securing airway in ER; POD # 7. Found to have an irregular polypoid swelling of R true vocal cord, biopsied, pathology reported as vocal cord polyp with focal atypia, benign squamous epithelium. Noted left vocal cord paralysis -first trach change today by Dr. Waddell; NPO since midnight -appreciate consults from Dr. Waddell and Dr. Doran -off sedation, extubated on 03/23, oxygen support and suctioning as needed -trach care -continue IV steroids, dual IV antibiotics; will switch to oral Augmentin and start on slow oral prednisone taper -imaging reviewed -had been treated with outpatient antibiotics and steroids -wide differential including Tyree's granulomatosis, malignancy; f/u [facility], Hep C and HIV negative -ST evaluation appreciated; mechanical soft diet with thin liquids Status: Acute (2) Vocal cord mass: -as noted above Status: Acute (3) Respiratory failure: -as noted above -COVID-19 test negative; off isolation precautions Status: Resolved Qualifiers: Chronicity: acute Respiratory failure complication: unspecified whether with hypoxia or hypercapnia Qualified Code(s): J96.00 - Acute respiratory failure, unspecified whether with hypoxia or hypercapnia (4) Leukocytosis: -likely reactive due to stress from acute respiratory failure -trending down, likely due to steroids, continue to monitor Status: Acute Qualifiers: Leukocytosis type: unspecified Qualified Code(s): D72.829 - Elevated white blood cell count, unspecified (5) Hypokalemia: Status: Resolved (6) Hyponatremia: -resolved Status: Resolved Additional A&P Information -Morbid obesity: BMI-32 kg/m2 -on mechanical soft diet per ST recommendations; NPO since midnight -off IVF; good oral hydration -GI ppx with Famotidine -DVT ppx with SCDs -Ceja discontinued and able to void independently without difficulty; ambulatory -Dispo: home with HH services; trach supplies ordered -Code status: FULL code -ICU care due to trach, airway obstruction. Anticipate discharge tomorrow once trach supplies and home health arranged Attestations Medical Necessity Statement*: Patient requires hospitalization for continued management of airway obstruction s/p tracheostomy pending first trach change. Time Spent in Patient Care: 16 - 35 minutes (>than 50% of time spent in counselling and/or direct pt care on unit). Coding Level of Care Code Acute Dry Cleaning Teacher for g Fwd Exam Comprehensive Diagnoses Airway obstruction J98.8 Vocal cord mass J38.3 Respiratory failure J96.00 Chronicity: acute Respiratory failure complication: unspecified whether with hypoxia or hypercapnia Leukocytosis D72.829 Leukocytosis type: unspecified Hypokalemia E87.6 Hyponatremia E87.1
[2020-03-28] MEDS: famotidine 20 mg/2 mL INJ IVP ×2 (09:29→20:34)
--- NOTE | 2020-03-28 09:36 | PC.NURSE ---
patient reported pain at the back of throat, intensity 3/10. Did not wantpain medication at this time, but will want it before the tracheotomy dressing change.
[2020-03-28] MEDS: HYDROcodone-acetaminophen 5-325 mg Tablet 1 TAB PO (11:27)
--- NOTE | 2020-03-28 11:36 | P.PN_ITS ---
Subjective Subjective: Interval history: 35 yo wf who is POD #7 s/p emergent tracheotomy done for true vocal cord paralysis/paresis with insufficient airway. The patient reports that she is doing well today, and there are no c/o. Vitals/I&O/Wt Last Vital Signs Temp 97.7 F 03/28/20 10:00 Pulse 60 03/28/20 10:00 Resp 21 H 03/28/20 10:00 BP 109/70 03/28/20 10:00 Pulse Ox 96 03/28/20 10:00 03/27/20 03/28/20 03/28/20 22:59 06:59 14:59 Intake Total 550 / 1300 250 / 1550 300 / 300 Balance 550 / 1300 250 / 1550 300 / 300 Weight last 48 hrs Weight 85.02 kg Weight 85.275 kg Physical Exam Const: COMMON NORMALS: no acute distress, average body habitus and patient oriented x3 GENERAL APPEARANCE: cooperative, comfortable and well developed HENMT: COMMON NORMALS: normocephalic, atraumatic, external ears normal and Normal external nose present HEAD & SCALP: normal to inspection, normocephalic and atraumatic FACE & SINUS: normal facial exam and face symmetric NOSE: Normal external nose present EXTERNAL EAR: Yes external ears normal TEETH & GINGIVA: Yes caries and Yes poor dentition Eye: COMMON NORMALS: EOMs intact bilaterally and conjunctivae normal CONJUNCTIVA: Yes conjunctivae normal Neck/C-Spine: COMMON NORMALS: full ROM, no lymphadenopathy, supple and Thyroid normal GENERAL: Yes other (The trach is in place and there is no erythema or induration present.) THYROID: Thyroid normal Neuro: COMMON NORMALS: patient oriented x3 Urinary Catheter Management^: Ceja: Cath Placed During This Visit: yes, but has since been removed by the nurse Reason for Continuing Indwelling Catheter: Other Urinary Catheter Date of Insertion: 03/21/20 Urinary Catheter Time of Insertion: 20:30 Date Urinary Catheter Removed: 03/25/20 Time Urinary Catheter Discontinued: 10:10 Data : 03/26/20 03:32 03/25/20 03:20 A&P Assessment and plan (1) Airway obstruction: Status: Acute (2) Vocal cord palsy: Status: Acute Additional A&P Information Plan: 1) Airway Obstruction: - The trach was changed to an uncuffed, fenestrated #6 Shiley trach tube today without incident. The patient may use a speaking valve as tolerated. - The patient may be discharged from my perspective as soon as she has been trained in trach care, has home health arrangements made, and has home humidification and suction available. - She is to f/u in Dr. Waddell's office in one week and as needed. We will co ntinue her TVC paralysis w/u as an outpatient. 2) True Vocal Cord Paralysis: - Daily trach care - Social Work consult for Home suction unit, Home humidification unit for the trach tube, and daily home health care for 10 days after discharge from trach care. - She is to f/u in my office in one week and as needed for any problems. Attestations Medical Necessity Statement*: I was consulted on airway management. Procedures Procedure Narrative Transnasal Fiberoptic Laryngoscopy: verbal informed consent was obtained from the patient; the fiberoptic nasopharyngolaryngoscope was passed through the right nostril into the nasopharynx; the nasopharynx, oralpharynx, hypopharynx, and larynx were inspected; the patient had left true vocal cord paralysis with the left TVC in the near median position; the right true vocal cord was mildly paretic and swollen; the airway is marginal; there were no masses or other lesions noted; the patient tolerated the procedure well, and there were no complications. Coding Level of Care Code Acute Atomic Welder for Chg Fwd Exam Expanded Problem Focused Diagnoses Airway obstruction J98.8 Vocal cord palsy J38.00
--- NOTE | 2020-03-28 14:36 | PC.NURSE ---
Received call form social insurance adviser. Discharge is delayed until tommorow. We are waiting on [facility] to have a respiratory therapist available, and waiting on [facility] emergency department to have trach supplies. Nurse explained this to the patient.
[2020-03-28 18:34] LABS: ANCA Interp Negative (Negative)
--- NOTE | 2020-03-28 18:36 | PC.NURSE ---
Offered patient wipes for a bed bath, pt declined. She already has some at bedside and can independently bathe.
[2020-03-28] MEDS: predniSONE 20 mg Tablet 60 MG PO ×2 (20:31→20:33)
[2020-03-29] VITALS (16 sets, daily range): BP systolic 84–118; BP diastolic 53–90; PULSE 52–101; RESP 0–24; O2SAT 94–100
[2020-03-29 05:55] LABS: Anion Gap 12.1 (5-19); Blood Urea Nitrogen 12 mg/dL (6-20); Calcium 8.5 mg/dL (8.5-10.5); Carbon Dioxide 26 mmol/L (22-29); Chloride 104 mmol/L (98-107); Glomerular Filtration Rate 182.7 mL/min (90-130); Glucose 125 mg/dL (65-115); Osmolality Calculated 284 mOsm/kg (285-295); Potassium 4.1 mmol/L (3.5-5.1); Sodium 138 mmol/L (136-145)
--- NOTE | 2020-03-29 08:32 | PM.DCS ---
Discharge Providers Date of Admission: 03/21/20 19:58 Date of Discharge: March 29, 2020 Attending Provider at Admission: Bunny Jiang MD Attending Provider at Discharge: Vilma Saul MD Primary Care Provider: Chanel Omalley Diagnoses at Discharge Discharge Diagnosis (1) Airway obstruction: Status: Acute Problem details: -Status post emergent tracheostomy following significant difficulty securing airway in ER; POD # 8. Found to have an irregular polypoid swelling of R true vocal cord, biopsied, pathology reported as vocal cord polyp with focal atypia, benign squamous epithelium. Noted left vocal cord paralysis -first trach change done on 03/[address] Waddell -appreciate consults from Dr. Waddell and Dr. Doran -off sedation, extubated on 03/23, oxygen support and suctioning as needed -trach care -off IV steroids, dual IV antibiotics; on oral Augmentin and started on slow oral prednisone taper -imaging reviewed -had been treated with outpatient antibiotics and steroids -wide differential including Tyree's granulomatosis, malignancy; f/u C-ANCA, Hep C and HIV negative -ST evaluation appreciated; mechanical soft diet with thin liquids (2) Vocal cord mass: Status: Acute (3) Respiratory failure: Status: Resolved Problem details: -as noted above -COVID-19 test negative; off isolation precautions Qualifiers: Chronicity: acute Respiratory failure complication: unspecified whether with hypoxia or hypercapnia Qualified Code(s): J96.00 - Acute respiratory failure, unspecified whether with hypoxia or hypercapnia (4) Leukocytosis: Status: Acute Problem details: -likely reactive due to stress from acute respiratory failure -trending down, likely due to steroids Qualifiers: Leukocytosis type: unspecified Qualified Code(s): D72.829 - Elevated white blood cell count, unspecified (5) Hypokalemia: Status: Resolved (6) Hyponatremia: Status: Resolved Reason for Visit Reason for Visit: RESP DISTRESS Hospital Course Hospital Course: Patient was admitted to the ICU directly from the OR where she had an emergency tracheostomy due to noted acute airway obstruction with difficulty obtaining a secure airway in the ER. She was noted to have an irregular polypoid swelling of the right true vocal cord that was biopsied and left true vocal cord paralysis. Pathology shows focal atypia with benign squamous epithelium. Further work-up was done including hepatitis C and HIV both of which are negative; C-ANCA is currently pending. Due to extent of airway edema she was covered with IV steroids and IV antibiotics with gradual improvement. She was extubated approximately 24 to 36 hours postop and has remained on humidified room air. Leukocytosis initially increased likely due to steroids and has gradually been trending down. Electrolytes and renal function have been normal. She has consistently had good urine output. Ceja catheter was discontinued and she has been able to void independently without difficulty. She was evaluated by speech therapy after several days of IV steroids and diet advanced further recommendations. She is currently on a mechanical soft diet and is doing well in terms of her oral intake. She had her first trach change done by Dr. Waddell yesterday and will require follow-up with him in approximately 1 week. Trach supplies and home health services have been arranged for discharge. She will be continued on an oral steroid taper as well as oral antibiotics. She is to follow-up with her primary care provider within 1 week. She is able to vocalize with capping of the trach. Teaching has been provided at bedside particularly in terms of suctioning of the trach and cleaning. Some supplies have been provided to her in the interim while awaiting delivery of the rest of her supplies from [employer]. Option to hold discharge until confirmation of delivery of supplies provided but patient wants to go home today. Discharge Summary: -Patient to follow-up with primary care provider within 1 week -Patient to follow up with Dr. Waddell in 1 week Physical Exam Const: COMMON NORMALS: no acute distress and patient oriented x3 GENERAL APPEARANCE: cooperative and comfortable NUTRITIONAL APPEARANCE: obese ORIENTATION/CONSCIOUSNESS: Yes awake HENMT: COMMON NORMALS: normocephalic, atraumatic, hearing grossly normal bilaterally and moist oral mucous membranes HEAD & SCALP: normocephalic and atraumatic Eye: COMMON NORMALS: Equal, round and reactive pupils present, EOMs intact bilaterally and conjunctivae normal CONJUNCTIVA: Yes conjunctivae normal PUPIL: Yes Equal, round and reactive pupils present Neck/C-Spine: COMMON NORMALS: full ROM GENERAL: Yes tracheostomy present (Trach collar in place, no noted erythema or bleeding currently) Resp: COMMON NORMALS: normal respiratory effort, No retractions, No use of accessory muscles and clear to auscultation bilaterally EFFORT & INSPECTION: Yes able to speak in complete sentences, Yes symmetric chest movement and No tachypneic AUSCULTATION: clear to auscultation bilaterally OTHER: -Able to vocalize better with occlusion of trach Cardio: COMMON NORMALS: regular rate, regular rhythm, S1 normal heart sound present, S2 normal heart sound present and No murmurs present (Cardio) RATE: regular rate RHYTHM: regular rhythm HEART SOUNDS: S1 normal heart sound present and S2 normal heart sound present GI: COMMON NORMALS: Normal to inspection, nondistended, normoactive bowel sounds present, Soft to palpation and non-tender PALPATION: Yes Soft to palpation Extremity: COMMON NORMALS: normal to inspection, full ROM and no clubbing, cyanosis or edema; negative for no pedal edema Neuro: COMMON NORMALS: patient oriented x3, moves all extremities, no focal motor deficits and no sensory deficits noted Psych: COMMON NORMALS: mental status grossly normal, Normal thought process present, cooperative, normal affect and speech normal SPEECH: Yes normal speech THOUGHT PROCESS: Normal thought process present Skin: COMMON NORMALS: no rashes or lesions noted, no jaundice, no petechiae and no mottling GENERAL SKIN EXAM: no rashes or lesions noted Urinary Catheter Management^: Ceja: Cath Placed During This Visit: yes, but has since been removed by the nurse Reason for Continuing Indwelling Catheter: Other Urinary Catheter Date of Insertion: 03/21/20 Urinary Catheter Time of Insertion: 20:30 Date Urinary Catheter Removed: 03/25/20 Time Urinary Catheter Discontinued: 10:10 Discharge Data Data Completed and Pending: Completed Studies During Hospitalization Category Date Time Status CT neck w con* [id number] Urgent Cat Scan 03/21/20 15:49 Completed XR chest 1V orlin ble [id number] Routine Exams 03/22/20 07:27 Completed XR chest 1V orlin ble [id number] Stat Exams 03/24/20 11:15 Completed XR chest 1V orlin ble [id number] Urgent Exams 03/21/20 14:05 [place] [id number] Stat Exams 03/21/20 14:50 Completed Pathology: Surgic al [PTH] Routine Pth 03/21/20 21:00 Completed Pending at discharge Category Date Time Status ES surgery / GI i mages Routine Exams 03/21/20 20:53 Taken Labs from last 24 hours 03/29/20 03/22/20 04:05 04:46 Sodium 138 Potassium 4.1 Chloride 104 Carbon Dioxide 26 Anion Gap 12.1 BUN 12 Creatinine 0.4 L GFR Calculation 182.7 H Glucose 125 H Calculated Osmolal ity 284 L Calcium 8.5 Ref Test Comments Negative Vitals: Last Vital Signs Temp 98.7 F 03/28/20 18:00 Pulse 88 03/29/20 08:19 Resp 0 L 03/29/20 06:00 BP 101/59 03/29/20 06:00 Pulse Ox 96 03/29/20 08:19 Discharge Plan Discharge Patient Disposition: Home Health Service Condition: Stable Prescriptions: New prednisone 20 mg Tablet See Rx Instructions .ROUTE .COMPLEX 8 Days Qty: 15 RF: 0 amoxicillin-pot clavulanate 875-125 mg Tablet 1 tab PO BID 10 Days Qty: 20 RF: 0 hydrocodone-acetaminophen 5-325 mg Tablet 1 tab PO Q8H PRN (Reason: Moderate Pain) Qty: 30 RF: 0 Continued albuterol sulfate [ProAir HFA] 90 mcg/actuation HFA aerosol inhaler 2 puff INHALATION Q6H PRN (Reason: Shortness Of Breath) RF: 0 norethindrone (contraceptive) [Ortho Micronor] 0.35 mg tablet 0.35 mg PO DAILY RF: 0 sertraline [Zoloft] 50 mg tablet 50 mg PO DAILY RF: 0 nicotine 21 mg/24 hr patch 24 hour 1 patch TRANSDERMA Q24H 28 Days Qty: 28 RF: 0 albuterol sulfate 0.63 mg/3 mL solution for nebulization 0.63 mg INHALATION Q6H PRN (Reason: shortness of breath or wheezing) 30 Days Qty: 90 RF: 0 Discontinued levofloxacin [Levaquin] 500 mg tablet 500 mg PO DAILY Qty: 5 RF: 0 Discharge Orders: Discharge Order (Routine); Ordered 03/29/20 Ordered By: Vilma Saul Other Ambulatory Orders: DME: Miscellaneous (Order) Location: None Selected Ordered By: Vilma Saul DME: Miscellaneous (Order) Location: None Selected Ordered By: Vilma Saul Referrals: [facility] [Outside] [facility] [Outside] Chanel Omalley FNP [Primary Care Provider] - 4-7 days (Post hospital discharge follow up) Eddie Waddell MD [Physician] - 1 week (Post hospital discharge follow up.) Discharge Diet: Soft Mechanical Discharge Activity: Increase activity as tolerated Activity Restrictions/Additional Instructions: The Home Health company should provide your tracheostomy supplies initially. Once Home Health services end please call [employer] to assist with getting your tracheotomy supplies ongoing. [employer] [facility] Customer line: . Your current tracheostomy is documented as a #6 uncuffed finestrated Shiley and has an item number of [id number] per [employer] system. Please make sure to verify with all the supplies needed prior to calling [employer]. [employer] will take down information and reach out to the ENT specialist, Dr Waddell for orders. You will more than likely need additional supplies of gauze sponges and tracheostomy care/ cleaning kit. Per Guy at [employer] they are contracted with your insurance plan. Discharge Attestations Time Spent in Discharge Care*: greater than 30 min Specific Discharge Activities: Specific discharge activities: educating patient, discussing with social work case manager/social workers/dc planners, documenting/other paperwork and evaluating patient/reviewing data Status at Discharge: Cognitive status at discharge: cognitively intact, Behavioral status at discharge: cooperative and independent in ADL's, Functional status at discharge: independent ambulation Overall status at discharge: patient has a new baseline Quality Metrics Clinical Quality Measures During this hospital stay, did patient experience: None Coding Level of Care Code Acute Armature [employer] for g Fwd Exam Comprehensive Diagnoses Airway obstruction J98.8 Vocal cord mass J38.3 Respiratory failure J96.00 Chronicity: acute Respiratory failure complication: unspecified whether with hypoxia or hypercapnia Leukocytosis D72.829 Leukocytosis type: unspecified Hypokalemia E87.6 Hyponatremia E87.1
[2020-03-29] MEDS: predniSONE 20 mg Tablet 60 MG PO (09:53)
[2020-03-29] MEDS: amoxicillin-clav 875-125 mg Tablet 1 TAB PO (09:53)
[2020-03-29] MEDS: famotidine 20 mg/2 mL INJ IVP (10:03)
--- NOTE | 2020-03-29 10:38 | PC.CHAP ---
Pastoral Care Encounter/Spiritual Assessment Type of Contact [] Declined facilities maintenance assistant visit [] Patient/Family/Request visit [] Outpatient visit [] Follow-up visit [] Physician referral [] Code/Alert [x] Routine visit [] Staff referral [] Actively dying [] Patient sleeping [] Family support [] [] Out of room [] Palliative care [] [] Receiving care in room [] Pre-surgical visit [] Trauma [] Long length of stay [] ICU visit [] Other: Relational/Emotional Strength [] Patient feels connected with others/family/visitors/staff [] Distress [] Loneliness/isolation [] Abandonment Spirituality of Patient [] Person of Mary [] Attends Jain of their Mary [] Believes in Prayer [] Reads Bible or Gnosticism materials [] There are Spiritual issues to be addressed Entry Level Recruiter Interventions [] Prayer [] Active listening [] Non-anxious presence [] Spiritual/emotional support [] Crisis/trauma care [] Spiritual counseling [] Bereavement support [] Provided bereavement packet [] Provided Bible/devotional materials [] Provided toy/stuffed animal, coloring book to patient or family member [] Provided Communion [] Anointing/[place] [] Salvation [x] Completed spiritual assessment [] Other: Impact on Illness or Injury [] Angry [] Fearful [] Anxious [] Often cries [] Exhaustion [] Unable to work [] Unable to attend latter-day [] Unable to walk/stand [] Unable to read [] Unable to drive [] Unable to eat/drink [] Unable to sleep [] Unable to be with family [] Patient intubated [] Other: Summary Entry Level Recruiter spoke to patient briefly- Time spent with patient
--- NOTE | 2020-03-29 15:44 | PC.NURSE ---
1415 d/c home with and trake care supplies picc removed
== END 2020-03-29 14:15 | disposition home health service (06) | DRG 11 ==
LOC: ER 18:20 → OPS 19:06 → ICU 19:58
PROVIDERS: Family Medicine; Specialist; Admitting Provider Internal Medicine; PCP Nurse Practitioner Family; Visit Provider Family Medicine
PROC: 0B110F4 Bypass Trachea to Cutaneous with Tracheostomy Device, Open Approach (ICD-10-PCS; principal; 2020-03-21 17:30)
PROC: 0CJS8ZZ Inspection of Larynx, Via Natural or Artificial Opening Endoscopic (ICD-10-PCS; 2020-03-21 17:30)
DX: J38.01 Paralysis of vocal cords and larynx, unilateral (principal); J96.00 Acute respiratory failure, unspecified whether with hypoxia or hypercapnia; E87.1 Hypo-osmolality and hyponatremia; J44.1 Chronic obstructive pulmonary disease with (acute) exacerbation; J98.8 Other specified respiratory disorders; E87.6 Hypokalemia; Z20.828 Contact with and (suspected) exposure to other viral communicable diseases; F41.8 Other specified anxiety disorders; F17.210 Nicotine dependence, cigarettes, uncomplicated; E66.01 Morbid (severe) obesity due to excess calories; Z68.33 Body mass index [BMI] 33.0-33.9, adult
CPT/HCPCS: 12345; 36415; 36569; 36592; 36600; 51702; 70360; 70491; 71045; 80048; 80053; 80202; 81001; 82533; 82728; 82803; 83036; 83516; 83605; 83615; 83735; 84145; 84439; 84443; 84481; 84703; 85025; 85378; 85651; 86140; 87040; 87070; 87205; 87426; 87522; 87536; 87635; 87806; 88305; 92507; 92523; 92526; 92610; 94002; 94003; 94640; 94799; 96375; 99283; A4570; J0330; J1100; J2250; J2370; J2543; J2704; J2930; J3010; J3370; J3490; J7030; J7050; J7512; Q9967

== ENCOUNTER 2020-05-10 08:35 | Outpatient (CLI) | payer MEDICAID, SELFPAY ==
--- NOTE | 2020-05-10 | CT_ITS ---
WS: [id number] CT CHEST WITH INTRAVENOUS CONTRAST HISTORY: COUGH TECHNIQUE: Contiguous 5 mm axial imaging performed on the thorax. Coronal and sagittal reformats are submitted. All CT scans at [facility] use at least one of these dose optimization techniq ues: automated exposure control; mA and/or kV adjustment per patient size (includes targeted exams wh ere dose is matched to clinical indication); or iterative reconstruction. CONTRAST: Omnipaque 300; 95 mL IV. DLP: 888.17 mGycm COMPARISON: None available. Lungs and central airway: Lungs are clear and well aerated. 3 mm subpleural nodule at the LEFT lung b ase. There are additional perifissural nodule's with the largest measuring 4 mm on the LEFT, image 42 of series 3. These are typically benign. No pneumonia. Pleura: Normal. No pleural effusion. Heart and pericardium: Normal size heart with no pericardial effusion. Mediastinum and blake: Trachea is in good position. No adenopathy of any significance. Vessels: Normal size aortic and pulmonary artery. No coronary artery calcifications. Chest wall and lower neck: Tracheostomy in good position. Upper abdomen: Small hiatal hernia. No adrenal mass. Osseous structures: No destructive process. CT/CT chest w con* [id number] IMPRESSION: 1. Tracheostomy remains in good position. 2. Bilateral perifissural nodules (intrapulmonary lymph nodes) are subcentimet er. These nodules are typically benign. 3. Normal size heart. No adenopathy.
[2020-05-10] MEDS: iohexol 300 mg/mL 100 mL Btl IV (09:24)
== END 2020-05-10 08:36 | disposition home or self-care (01) ==
PROVIDERS: Family Provider Nurse Practitioner Family; PCP Nurse Practitioner Family; Visit Provider Specialist
DX: R05 Cough (principal); R91.8 Other nonspecific abnormal finding of lung field
CPT/HCPCS: 71260; Q9967

== ENCOUNTER 2020-05-24 12:13 | Outpatient (CLI) | payer MEDICAID, SELFPAY ==
--- NOTE | 2020-05-24 12:35 | MR_ITS ---
WS: [id number] MRI NECK with and without CONTRAST. COMPARISON: Neck CT 03/21/2020 Multiplanar, multisequence imaging is performed with and without contrast. Significant motion artifact on this examination. Quality of examination is limited. There is persiste nt edema and enlargement of the vocal cords causing narrowing of the larynx. There is complete obstru ction of the lumen at the level of the vocal cords. There is marked soft tissue thickening with edema and there is also near diffuse enhancement. There are scattered areas of low signal which do not enh ance in the posterior larynx at the level of the true vocal cords. This could be areas of necrosis. T here is not a discrete mass. The epiglottis appears normal. Tracheostomy remains in good position. No adenopathy is identified but evaluation for subtle lymph nodes would be difficult with this amount o f motion. MR/MR orbit face neck wo/w* [id number] IMPRESSION: 1. Persistent, severe, bilateral vocal cord edema with near diffuse enhancemen t on the postcontrast sequences. Occlusion of the airway at the level of the vo bakari cords. If direct visualization and biopsy have not been performed this may provide additional information. 2. No adenopathy appreciated.
== END 2020-05-24 12:14 | disposition home or self-care (01) ==
LOC: RADWPI 12:16
PROVIDERS: Family Provider Nurse Practitioner Family; PCP Nurse Practitioner Family; Visit Provider Specialist
DX: R05 Cough (principal); R60.0 Localized edema
CPT/HCPCS: 70543; A9579

== ENCOUNTER 2020-05-25 12:28 | Outpatient (CLI) | payer MEDICAID, SELFPAY ==
--- NOTE | 2020-05-25 12:51 | MR_ITS ---
WS: [id number] MRI BRAIN WITH AND WITHOUT CONTRAST HISTORY: COUGH COMPARISON: None available. TECHNIQUE: Multiplanar imaging performed through the brain with Prohance 17 ml's IV. No acute infarcts are seen. Chappell-white matter differentiation is well preserved. There are very few n onspecific subcentimeter white matter lesions. Considered within normal limits for the patient's age. No susceptibility artifacts or prior lacunar infarcts. Ventricles and extra-axial spaces are normal. Clivus and pituitary gland are normal. Visualized posterior fossa and brainstem are also normal. Postcontrast images are negative for masses or vascular malformations. Dural venous sinuses are normal. Paranasal sinuses: Well aerated with no significant disease. Mastoid air cells: Normal. Calvarium and scalp: Normal. MR/MR head wo/w con [id number] IMPRESSION: 1. Unremarkable MRI brain with contrast. 2. No acute infarct.
== END 2020-05-25 12:29 | disposition home or self-care (01) ==
PROVIDERS: Family Provider Nurse Practitioner Family; PCP Nurse Practitioner Family; Visit Provider Specialist
DX: R05 Cough (principal)
CPT/HCPCS: 70553; A9579